=== PATIENT | male | born 1950 | race Caucasian/White ===

== ENCOUNTER 2019-12-07 16:05 | Inpatient (IN) | payer MEDICARE, OTHER ==
[~2019-12-07] VITALS: Ht 188 cm; Wt 96.3 kg
[~2019-12-07 16:05] MED LIST: ASPI81CH43; ASPI81CH43 PO; CALCTAB80; INSLISPI; INSUPOW; LEVEMIR; LISI-275; METO25TA5 OR
[2019-12-07 17:50] LABS: Basophils # (auto) 0 10 ^3/uL (0-0.2); Basophils % (auto) 0.9 % (0.0-2.0); Eosinophils # (auto) 0.2 10 ^3/uL (0-0.8); Eosinophils % (auto) 4.7 % (0.0-7.0); Hematocrit 38.7 % (41.0-53.0); Hemoglobin 13.4 g/dL (13.5-17.5); Lymphocytes # (auto) 0.8 10 ^3/uL (0.4-5.4); Lymphocytes % (auto) 15.7 % (10.0-50.0); Mean Corpuscular Hemoglobin 32.2 pg (28.0-32.0); Mean Corpuscular Hgb Conc. 34.7 g/dL (32.0-36.0); Mean Corpuscular Volume 92.9 fL (80.0-100.0); Monocytes # (auto) 0.5 10 ^3/uL (0-1.3); Monocytes % (auto) 10.7 % (0.0-12.0); Neutrophils # (auto) 3.3 10 ^3/uL (1.6-8.6); Platelet Count (auto) 193 10^3/uL (140-450); Red Blood Cells 4.16 10^6/uL (4.5-5.90); Red Cell Distribution Width 14.4 % (11.8-14.3); White Blood Cell 4.9 10^3/uL (4.4-10.8)
[2019-12-07 18:06] LABS: Albumin 2.8 g/dL (3.4-5.0); Potassium 4.5 mmol/L (3.5-5.1)
[2019-12-07 18:10] LABS: BUN/Creatinine Ratio 20.9; Bilirubin, Total 6.6 mg/dL (0.2-1.0); Total Protein 7.3 g/dL (6.4-8.2)
[2019-12-07 21:02] LABS: Urine Bacteria NONE SEEN /hpf (None Seen); Urine Blood Negative /uL (Negative); Urine Specific Gravity 1.022 (1.001-1.035); Urine WBC 1 /hpf (0 - 3)
[2019-12-07] MEDS ORDERED: ACETAMINOPHEN 325 MG TAB PO PRN (22:15)
[2019-12-07] MEDS ORDERED: ONDANSETRON HCL 4 MG/2 ML VIAL IV PRN (22:15)
[2019-12-07] MEDS ORDERED: DEXTROSE (50%) 50ML SYRG IV PRN (22:15)
[2019-12-07] MEDS ORDERED: MORPHINE SULFATE 4 MG/ML SYR/VIAL IV PRN (22:15)
[2019-12-07] MEDS ORDERED: DOCUSATE SOD 100 MG CAP PO PRN (22:15)
[2019-12-07] MEDS ORDERED: SODIUM CHLORIDE 0.9% 1,000 ML IV ONE (22:15)
[2019-12-07] MEDS ORDERED: HYDROcodone-ACET 5/325MG TAB PO PRN (22:15)
--- NOTE | 2019-12-07 23:28 | NUR ---
PATIENT ARRIVED FROM ER. PATIENT STATES THAT HE WILL BE GOING DOWNSTAIRS TO THE ER TO TALK WITH HIS SON. 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 PATIENT STATES THAT HE WILL BE BACK IN HIS ROOM IN 30 MINUTES. STEADY GAIT NOTED, NO S/SX OF DISTRESS OR SOB. PATIENT DENIES PAIN AT THIS TIME. PATIENT STATES THAT HE FEELS BETTER THAN HE HAS IN THE LAST WEEK AND A HALF. PATIENT OFF FLOOR, PATIENT STATES THAT HE WILL BE BACK IN HIS ROOM IN 30 MINUTES.
[2019-12-07 23:30] VITALS: BP_SYST 159; BP_SYST 180; BP_DIAS 74; BP_DIAS 77
--- NOTE | 2019-12-07 23:55 | NUR ---
PATIENT BACK ON FLOOR. WILL COMPLETE ASSESSMENT AND ADMISSION AT THIS TIME.
--- NOTE | 2019-12-08 | NUR ---
Telemetry admit from ER ABDIRIZAK,SHERRY TURNER admitted to Telemetry unit after SBAR received FROM ER NURSE JEFFRY TYLER. Patient oriented to Antoinette Mc, primary RN, unit, room, bed, and unit policies regarding patient care and visiting hours. Patient now on continuous telemetry monitoring, tele box #75 and telemetry reading on arrival to unit is SR 68. Patient IS ON ROOM AIR weighed by bed scale and encouraged to call if they need something. All questions and concerns addressed, patient verbalized understanding.
[2019-12-08] MEDS: ACCU-CHEK COMFORT CURVE STRIP VI SCH ×6 (00:51→20:28)
[2019-12-08] MEDS: InsuLIN REG 1unit/0.01ml Soln (100units/ml) SC SCH ×6 (00:51→20:28)
[2019-12-08] MEDS: SODIUM CHLORIDE 0.9% 1,000 ML IV SCH ×3 (01:06→18:43)
[2019-12-08] MEDS ORDERED: INSU100I45 IJ (03:05)
[2019-12-08] MEDS ORDERED: LEVEMIR SC (03:05)
[2019-12-08] MEDS ORDERED: LISI-646 PO (03:05)
--- NOTE | 2019-12-08 03:05 | NUR ---
PATIENT OWN MEDS LEVEMIR PEN NOVOLOG PEN SENT TO PHARMACY
[2019-12-08 06:00] VITALS: BP 167/86
[2019-12-08 06:24] LABS: Basophils # (auto) 0.1 10 ^3/uL (0-0.2); Basophils % (auto) 1.3 % (0.0-2.0); Eosinophils # (auto) 0.6 10 ^3/uL (0-0.8); Eosinophils % (auto) 11.2 % (0.0-7.0); Hematocrit 37.5 % (41.0-53.0); Hemoglobin 12.9 g/dL (13.5-17.5); Lymphocytes # (auto) 0.9 10 ^3/uL (0.4-5.4); Lymphocytes % (auto) 16.1 % (10.0-50.0); Mean Corpuscular Hemoglobin 31.8 pg (28.0-32.0); Mean Corpuscular Hgb Conc. 34.4 g/dL (32.0-36.0); Mean Corpuscular Volume 92.5 fL (80.0-100.0); Monocytes # (auto) 0.5 10 ^3/uL (0-1.3); Monocytes % (auto) 10.2 % (0.0-12.0); Neutrophils # (auto) 3.3 10 ^3/uL (1.6-8.6); Neutrophils % (auto) 61.2 % (37.0-80.0); Platelet Count (auto) 194 10^3/uL (140-450); Red Blood Cells 4.05 10^6/uL (4.5-5.90); Red Cell Distribution Width 14.8 % (11.8-14.3); White Blood Cell 5.4 10^3/uL (4.4-10.8)
--- NOTE | 2019-12-08 06:32 | NUR ---
BLOOD SUGAR 45 PATIENT USED HIS OWN BLOOD SUGAR MONITOR AFTER FEELING LOW BLOOD SUGAR SYMPTOMS, BS WAS 45. PATIENT HAD A CRANBERRY GRAPE JUICE AND THEN USED CALLED LIGHT. RECHECK BLOOD SUGAR WITH [facility] ACCU CHECK WAS 66. PATIENT DIET ORDER IS NPO, WILL ENDORSE TO DAY SHIFT NURSE TO MAKE ROUNDING MD AWARE. WILL CONTINUE TO MONITOR Q1H AND PRN. PATIENT COMFORTABLE IN BED. ALERT AND ORIENTED X4.
[2019-12-08 06:38] LABS: BUN/Creatinine Ratio 28.3; Calcium 8.9 mg/dL (8.5-10.1); Potassium 3.8 mmol/L (3.5-5.1)
[2019-12-08 08:30] VITALS: BP 152/73
[2019-12-08] MEDS: amLODIPine BESYLATE 5 MG TAB PO SCH (10:33)
[2019-12-08] MEDS: LISINOPRIL 20 MG TAB PO SCH (10:34)
[2019-12-08 12:00] VITALS: BP 158/68
--- NOTE | 2019-12-08 14:51 | NUR ---
CALLED AND SPOKE TO TRACE TURNER REGARDING TRANSFER TO HIGHER LEVEL OF CARE.
--- NOTE | 2019-12-08 16:23 | NUR ---
I called [facility] [phone] and spoke with Anibal-faxed in requested transfer back paperwork and clinical information-he stated this would be something that they would most likely do in their outpatient GI lab and transfer the patient back after procedure-this will more than likely happen tomorrow rather than today-I relayed this information to nurse Lewis.
--- NOTE | 2019-12-08 16:30 | NUR ---
PER TRACE TURNER TRANSFER WILL MOST LIKELY NOT HAPPEN TODAY. STATED [facility] IS SET UP AND THAT PATIENT WILL GO TO A GASTRO CLINIC.
--- NOTE | 2019-12-08 16:33 | NUR ---
I called [facility] ([phone]) and spoke with Boris, placed them on will-call pending [place] [facility] Faxed Medicare PCS form to [facility].
[2019-12-08 17:06] VITALS: BP 151/70
--- NOTE | 2019-12-08 19:20 | NUR ---
OPENING NOTE- NOC SHIFT PATIENT IS ALERT AND ORIENTED X4. PATIENT COMFORTABLE IN BED, NO S/SX OF DISTRESS, S0B OR PAIN. PATIENT IS WATCHING TELEVISION. BEDSIDE TABLE WITHIN REACH, CALL LIGHT WITHIN REACH. DISCUSSED POC WITH PATIENT AND INSTRUCTED PATIENT TO CALL PRN; PATIENT VERBALIZED UNDERSTANDING. WILL CONTINUE TO MONITOR Q1H AND PRN.
--- NOTE | 2019-12-08 20:31 | NUR ---
PATIENT OUT OF ROOM WALKING AROUND THE FLOOR. STEADY GAIT NOTED. ASKED PATIENT TO REPORT TO STATION
--- NOTE | 2019-12-08 20:44 | NUR ---
PATIENT BACK IN ROOM. NO S/SX OF DISTRESS, SOB OR PAIN.
[2019-12-08 22:00] VITALS: BP 145/81
--- NOTE | 2019-12-08 23:25 | NUR ---
PATIENT REPORTS BOWEL MOVEMENT WITH BLOOD PATIENT STATES THAT HE HAS HAD BOWELS WITH BLOOD IN THE PAST BUT THIS TIME WAS SIGNIFICANTLY MORE BLOOD. PATIENT STATES THAT THE BLOOD IS NOT MIXED WITH STOOL AND THAT HE SUSPECTS HEMORRHOIDS, DENIES DISCOMFORT OR PAIN. INSTRUCTED PATIENT TO NOT FLUSH TOILET NEXT BOWEL. BOWEL SAMPLE WAS PREVIOUSLY SENT DURING DAY SHIFT; PENDING RESULTS.
[2019-12-09] MEDS: ACCU-CHEK COMFORT CURVE STRIP VI SCH ×6 (00:41→20:19)
--- NOTE | 2019-12-09 01:10 | NUR ---
IMAGE CD ORDERED FROM RADIOLOGY FOR TRANSFER.
[2019-12-09] MEDS: SODIUM CHLORIDE 0.9% 1,000 ML IV SCH ×2 (04:41→14:22)
[2019-12-09] MEDS: InsuLIN REG 1unit/0.01ml Soln (100units/ml) SC SCH ×6 (04:41→20:19)
--- NOTE | 2019-12-09 04:57 | NUR ---
[place] [facility] [place] [facility] [place] [phone] CALLED TO FOLLOW UP ON PATIENT STATUS FOR TRANSFER. BED NOT AVAILABLE AT THIS TIME. KATIUSKA ASKED IF PATIENT HAS FEVER, ISOLATION AND IF PATIENT REQUIRES SITTER. KATIUSKA WAS UPDATED WITH PATIENT STATUS.
[2019-12-09 05:00] VITALS: BP 156/85
[2019-12-09 06:44] LABS: Hematocrit 33.9 % (41.0-53.0); Hemoglobin 11.8 g/dL (13.5-17.5); Mean Corpuscular Hemoglobin 31.8 pg (28.0-32.0); Mean Corpuscular Hgb Conc. 34.7 g/dL (32.0-36.0); Mean Corpuscular Volume 91.7 fL (80.0-100.0); Platelet Count (auto) 179 10^3/uL (140-450); Red Blood Cells 3.69 10^6/uL (4.5-5.90); Red Cell Distribution Width 14.9 % (11.8-14.3); White Blood Cell 4.8 10^3/uL (4.4-10.8)
[2019-12-09 06:48] LABS: INR 1.17 (0.9-1.15)
[2019-12-09 06:53] LABS: Albumin 2.5 g/dL (3.4-5.0); Calcium 8.3 mg/dL (8.5-10.1); Potassium 3.7 mmol/L (3.5-5.1)
[2019-12-09 06:54] LABS: Band Neutrophils % (manual) 0; Basophils % (manual) 0 (0.0-2.0); Blast Cells 0; Metamyelocytes % 0; Myelocytes % 0; Promyelocytes % 0; Reactive Lymphocytes 0
[2019-12-09 06:57] LABS: Bilirubin, Total 7.3 mg/dL (0.2-1.0); Total Protein 6.2 g/dL (6.4-8.2)
--- NOTE | 2019-12-09 07:30 | NUR ---
RECEIVED REPORT FROM NIGHT NURSE. PATIENT RESTING IN BED, NO DISTRESS NOTED. WILL CONTINUE TO MONITOR.
[2019-12-09 07:44] LABS: Eosinophils % (manual) 10 (0-7); Lymphocytes % (manual) 20 (10.0-50.0); Monocytes % (manual) 7 (0-12)
[2019-12-09 09:00] VITALS: BP 159/86
[2019-12-09] MEDS: LISINOPRIL 20 MG TAB PO SCH (10:37)
[2019-12-09] MEDS: amLODIPine BESYLATE 5 MG TAB PO SCH (10:37)
[2019-12-09] MEDS: Glucerna Carbsteady SHAKE Vanilla 8oz PO SCH ×2 (12:24→18:22)
--- NOTE | 2019-12-09 12:48 | NUR ---
I received a call from Serjio at the [facility] letting me know that they have accepted this patient to their GI lab-they will take patient this evening and will send him back to us tomorrow after procedure is completed. I spoke with warehouse specialist Stacie, she is aware and will make sure the patient's bed is saved for him to come back to tomorrow.
[2019-12-09 13:00] VITALS: BP 165/89
--- NOTE | 2019-12-09 14:18 | NUR ---
PAGED DOCTOR LOERA FOR PRN ORDERS.
--- NOTE | 2019-12-09 14:21 | NUR ---
SPOKE TO DOCTOR LOERA, ORDERS RECEIVED, WILL PLACE AND CARRY OUT.
[2019-12-09] MEDS ORDERED: cloNIDine HCL 0.1 MG TAB PO PRN (14:30)
--- NOTE | 2019-12-09 16:50 | NUR ---
I spoke with Serjio at the [facility] [phone] and made him aware that per administration we are not willing to sign/pay for the outpatient EUS at their GI lab. Per Serjio they will bring the patient over anyway-he has already arranged transportation back tomorrow. Patient will be going to their [place] GI lab, they do not want patient to arrive prior to 8pm. Nurse can call report to [phone] (but not before 730pm). I called MICHEAL to set up transportation-per Victoria Medicare will not cover trip due to it being an outpatient procedure. I called patient's secondary insurance-[employer] and spoke with Aarti, she said they can not authorize either due to patient going for an outpatient procedure. Per Victoria, she will fax voucher over for us to sign for transportation to [facility]. [facility] ETA is 1999. Account Support Specialist Stacie aware that they need to hold patient's bed as he will be transferred back to us tomorrow. I relayed this information to nurse Deutsch.
[2019-12-09 17:00] VITALS: BP 147/75
--- NOTE | 2019-12-09 19:00 | NUR ---
OPENING NOTE- NOC SHIFT PATIENT IS ALERT AND ORIENTED X4, ANSWERS IN COMPLETE SENTENCES AND MAKES APPROPRIATE EYE CONTACT. NO S/SX OF DISTRESS OR SOB. PATIENT DENIES PAIN AT THIS TIME. PATIENT IS COMFORTABLE IN BED. BED IS LOCKED AT LOWEST POSITION, BED RAILS UP X2 AND HEAD OF BED IS UP >30 DEGREES. PATIENT IS AWARE OF PENDING TRANSFER TO [facility]. WILL CONTINUE TO MONITOR Q1H AND PRN. WILL FOLLOW UP WITH TRANSFER.
--- NOTE | 2019-12-09 19:15 | NUR ---
[facility] TRANSF[facility] CALL SPOKE WITH KAYLYN PATIÑO PROVIDED PATIENT DESTINATION [address] [place] [address] [address] SULLIVAN, BUILDING [address] [place] [address] RECEIVING MD KAREL IRWIN MD PHONE NUMBER FOR REPORT [phone] JEZ
--- NOTE | 2019-12-09 19:41 | NUR ---
REPORT GIVEN TO ARMIDA TYLER AT [facility] [phone]
--- NOTE | 2019-12-09 19:45 | NUR ---
[facility] REP STATES ETA IS [id number]
--- NOTE | 2019-12-09 20:50 | NUR ---
Discharge Transfers Patient is being transferred to [facility]. Patient is to follow up with accepting KAREL IRWIN MD doctor at the receiving facility. ALL PERSONAL BELONGINGS WITH PATIENT. NO S/SX OF DISTRESS OR SOB. PATIENT DENIES PAIN. TRANSFERRED VIA [facility]. TELE BOX 75 SENT TO MONITOR TECHS. ALL DISCHARGE AND TRANSFER PAPERWORK WITH PATIENT.
--- NOTE | 2019-12-09 21:09 | NUR ---
SPOKE WITH MARCELLA PATIENT'S AND MADE HER AWARE OF PATIENT TRANSFER PROVIDED MARCELLA WITH KATELYNN ORELLANA RN NAME, PHONE NUMBER AND DESTINATION ADDRESS.
== END 2019-12-09 20:50 | disposition short-term general hospital (02) | DRG 438 ==
LOC: ER 16:05 → TELE-WESTW 16:06 → MERGE 16:06
PROVIDERS: ADMIT Hospitalist; ATTEND Internal Medicine
DX: K86.9 Disease of pancreas, unspecified (principal); K83.1 Obstruction of bile duct; N17.0 Acute kidney failure with tubular necrosis; E44.0 Moderate protein-calorie malnutrition; E87.1 Hypo-osmolality and hyponatremia; R65.10 Systemic inflammatory response syndrome (SIRS) of non-infectious origin without acute organ dysfunction; R79.89 Other specified abnormal findings of blood chemistry; K56.41 Fecal impaction; E11.65 Type 2 diabetes mellitus with hyperglycemia; E11.21 Type 2 diabetes mellitus with diabetic nephropathy; Z85.46 Personal history of malignant neoplasm of prostate; I10 Essential (primary) hypertension; C61 Malignant neoplasm of prostate; Z90.410 Acquired total absence of pancreas; Z68.27 Body mass index [BMI] 27.0-27.9, adult
CPT/HCPCS: 36415; 71046; 71250; 74176; 74183; 80048; 80053; 81001; 82105; 82140; 82150; 82248; 82378; 82705; 82962; 83036; 83690; 84154; 84443; 85007; 85025; 85027; 85610; 86301; 87045; 87081; 87427; 87804; 93005; G0378; J1815

== ENCOUNTER 2019-12-11 12:16 | Inpatient (IN) | payer MEDICARE, OTHER ==
[~2019-12-11 12:16] MED LIST changes: +INSU100I45 IJ; +LEVEMIR SC; +LISI-646 PO
--- NOTE | 2019-12-11 15:41 | NUR ---
RECEIVED REPORT FROM JAYSON BHATT AT [facility].
--- NOTE | 2019-12-11 16:45 | NUR ---
RECEIVED FOLLOW-UP CALL FROM [facility]. PATIENT SCHEDULED TO BE TRANSPORTED BETWEEN [phone].
--- NOTE | 2019-12-11 20:35 | NUR ---
arrival note pt arrived to rm 207. pt A&Ox4. pt denies any pain or discomfort at this time. respirations are even and non labored on room air. pt ambulates without assistance, and tolerates well.
[2019-12-11 20:48] VITALS: BP 176/79
[2019-12-11] MEDS ORDERED: ONDANSETRON HCL 4 MG/2 ML VIAL IV PRN (21:45)
[2019-12-11] MEDS ORDERED: HYDROcodone-ACET 5/325MG TAB PO PRN (21:45)
[2019-12-11] MEDS ORDERED: ACETAMINOPHEN 325 MG TAB PO PRN (21:45)
[2019-12-11] MEDS ORDERED: TEMAZEPAM 15 MG CAP PO PRN (21:45)
[2019-12-11] MEDS ORDERED: DEXTROSE (50%) 50ML SYRG IV PRN (21:45)
[2019-12-11 22:00] VITALS: BP 176/79
[2019-12-11] MEDS: ACCU-CHEK COMFORT CURVE STRIP VI SCH (22:34)
--- NOTE | 2019-12-11 22:40 | NUR ---
critical high blood glucose of 408, hospitalist paged.
--- NOTE | 2019-12-11 22:42 | NUR ---
gave pt 10 units insulin r
[2019-12-11 22:44] LABS: White Blood Cell 4.8 10^3/uL (4.4-10.8)
[2019-12-11 22:46] LABS: Hematocrit 33.7 % (41.0-53.0); Hemoglobin 11.7 g/dL (13.5-17.5); Mean Corpuscular Hemoglobin 33.1 pg (28.0-32.0); Mean Corpuscular Hgb Conc. 34.6 g/dL (32.0-36.0); Mean Corpuscular Volume 95.7 fL (80.0-100.0); Platelet Count (auto) 195 10^3/uL (140-450); Red Blood Cells 3.52 10^6/uL (4.5-5.90); Red Cell Distribution Width 15.2 % (11.8-14.3)
[2019-12-11] MEDS: InsuLIN REG 1unit/0.01ml Soln (100units/ml) SC SCH (22:47)
[2019-12-11 22:48] LABS: INR 1.21 (0.9-1.15); Partial Thromboplastin Time 28.2 sec (23.64-32.05)
--- NOTE | 2019-12-11 22:50 | NUR ---
spoke hospitalist Tito regarding critical high blood sugar. no new orders received .
[2019-12-11 22:51] LABS: Albumin 2.8 g/dL (3.4-5.0); BUN/Creatinine Ratio 20.2; Band Neutrophils % (manual) 0; Basophils % (manual) 0 (0.0-2.0); Blast Cells 0; Calcium 8.4 mg/dL (8.5-10.1); Metamyelocytes % 0; Myelocytes % 0; Potassium 4.1 mmol/L (3.5-5.1); Promyelocytes % 0; Reactive Lymphocytes 0
[2019-12-11 22:52] LABS: Amylase 10 U/L (25-115); Lipase 13 U/L (73-393)
[2019-12-11 22:54] LABS: Bilirubin, Total 3.6 mg/dL (0.2-1.0); Total Protein 6.9 g/dL (6.4-8.2)
--- NOTE | 2019-12-11 22:55 | NUR ---
pt left to smoke, AMA in chart
--- NOTE | 2019-12-11 23:10 | NUR ---
pt returned to rm 207
[2019-12-11 23:24] LABS: Eosinophils % (manual) 1 (0-7); Lymphocytes % (manual) 8 (10.0-50.0); Monocytes % (manual) 2 (0-12)
--- NOTE | 2019-12-12 04:40 | NUR ---
UA specimen sent to LAB
[2019-12-12 05:00] VITALS: BP 152/66
[2019-12-12 05:01] LABS: Urine Bacteria NONE SEEN /hpf (None Seen); Urine Blood Negative /uL (Negative); Urine Specific Gravity 1.006 (1.001-1.035); Urine WBC 1 /hpf (0 - 3)
[2019-12-12] MEDS: ACCU-CHEK COMFORT CURVE STRIP VI SCH ×2 (06:10→13:07)
[2019-12-12] MEDS: InsuLIN REG 1unit/0.01ml Soln (100units/ml) SC SCH ×2 (06:14→13:08)
--- NOTE | 2019-12-12 06:59 | NUR ---
closing note pt resting in semi fowlers position with HOB 30 degrees. pt watching tv, and denies any pain or discomfort. resp are even and non labored on room air. bed is in low locked position, with call light within reach.
--- NOTE | 2019-12-12 07:30 | NUR ---
Opening Shift Note RECEIVED REPORT FROM NOC RN. Assumed care of patient, awake and alert. No S/S of distress/SOB or pain. BED IN LOWEST, LOCKED POSITION WITH SIDERAILS UP x2 AND CALL LIGHT WITHIN REACH. Instructed on POC and to call for assist PRN, will continue to monitor for changes Q1hr and PRN.
[2019-12-12 09:00] VITALS: BP 147/67
[2019-12-12] MEDS ORDERED: LISINOPRIL 20 MG TAB PO SCH (10:00)
[2019-12-12 13:22] VITALS: BP 168/77
[2019-12-12 13:23] VITALS: BP 168/77
== END 2019-12-12 13:55 | disposition home or self-care (01) | DRG 438 ==
LOC: TELE-CENTR 20:48 → MERGE 20:48
PROVIDERS: ADMIT Internal Medicine; ATTEND Internal Medicine
DX: K86.9 Disease of pancreas, unspecified (principal); K83.1 Obstruction of bile duct; E44.0 Moderate protein-calorie malnutrition; R65.10 Systemic inflammatory response syndrome (SIRS) of non-infectious origin without acute organ dysfunction; E87.0 Hyperosmolality and hypernatremia; R17 Unspecified jaundice; E11.21 Type 2 diabetes mellitus with diabetic nephropathy; I10 Essential (primary) hypertension; Z85.46 Personal history of malignant neoplasm of prostate; Z80.42 Family history of malignant neoplasm of prostate; Z68.25 Body mass index [BMI] 25.0-25.9, adult; Z72.0 Tobacco use; Z80.3 Family history of malignant neoplasm of breast; Z82.49 Family history of ischemic heart disease and other diseases of the circulatory system
CPT/HCPCS: 36415; 80053; 81001; 82150; 82962; 83690; 85007; 85027; 85610; 85730; G0378; J1815

== ENCOUNTER → 2020-01-21 | Emergency (ER) | payer MEDICARE, OTHER ==
[~2020-01-21] VITALS: Ht 190.5 cm; Wt 106.6 kg
[~2020-01-21] MED LIST changes: +ACETAMINOPHEN 500 MG TAB PO ONE; +HYDROcodone-ACET 5/325MG TAB PO ONE; +HYDROmorphone HCL 2 MG/ML VL IV ONE; +MORPHINE SULFATE 4 MG/ML SYR/VIAL IV ONE; +ONDANSETRON HCL 4 MG/2 ML VIAL IV ONE; +ONDANSETRON HCL 4 MG/2 ML VIAL ONE; +SODIUM CHLORIDE 0.9% 1,000 ML IV ONE; +cefTRIAXone 1GM/50ML D5W 50 ML IV ONE; +cloNIDine HCL 0.1 MG TAB PO ONE; +metroNIDAZOLE 500MG/100ML 100 ML IV ONE
[2020-01-21 01:24] LABS: Hematocrit 38.6 % (41.0-53.0); Hemoglobin 12.8 g/dL (13.5-17.5); Mean Corpuscular Hemoglobin 31.1 pg (28.0-32.0); Mean Corpuscular Hgb Conc. 33.2 g/dL (32.0-36.0); Mean Corpuscular Volume 93.6 fL (80.0-100.0); Platelet Count (auto) 214 10^3/uL (140-450); Red Blood Cells 4.12 10^6/uL (4.5-5.90); Red Cell Distribution Width 14.3 % (11.8-14.3); White Blood Cell 6.5 10^3/uL (4.4-10.8)
[2020-01-21 01:43] LABS: Albumin 2.8 g/dL (3.4-5.0); BUN/Creatinine Ratio 11.7; Calcium 8.3 mg/dL (8.5-10.1); Potassium 3.7 mmol/L (3.5-5.1)
[2020-01-21 01:46] LABS: Basophils % (manual) 0 (0.0-2.0); Blast Cells 0; Eosinophils % (manual) 0 (0-7); Metamyelocytes % 0; Myelocytes % 0; Promyelocytes % 0; Reactive Lymphocytes 0
[2020-01-21 01:50] LABS: Bilirubin, Total 2.1 mg/dL (0.2-1.0)
[2020-01-21 01:52] LABS: Lactic Acid w/Reflex 3.3 mmol/L (0.4-2.0)
[2020-01-21 02:44] LABS: Band Neutrophils % (manual) 14; Lymphocytes % (manual) 2 (10.0-50.0); Monocytes % (manual) 5 (0-12)
[2020-01-21 03:47] LABS: Urine Bacteria NONE SEEN /hpf (None Seen); Urine Blood Negative /uL (Negative); Urine Specific Gravity 1.009 (1.001-1.035); Urine WBC <1 /hpf (0 - 3)
[2020-01-21 06:00] VITALS: BP 139/61
== END | disposition home or self-care (01) ==
LOC: EDUNIT# 00:31 → EDBD 00:41 → ER 00:48
DX: R53.1 Weakness (principal)
CPT/HCPCS: 36415; 74176; 80053; 81001; 82140; 82150; 83605; 83690; 84484; 85007; 85027; 87040; 87070; 87077; 87186; 87804; 87880; 93005; 96365; 96368; 96375; 99285; J0696; J1170; J2405; J3490; J7030

== ENCOUNTER 2020-03-18 15:01 | Inpatient (IN) | payer MEDICARE, OTHER ==
[~2020-03-18] VITALS: Ht 188 cm; Wt 99.3 kg
[~2020-03-18 15:01] MED LIST changes: -ACETAMINOPHEN 500 MG TAB PO ONE; -HYDROcodone-ACET 5/325MG TAB PO ONE; -HYDROmorphone HCL 2 MG/ML VL IV ONE; -MORPHINE SULFATE 4 MG/ML SYR/VIAL IV ONE; -ONDANSETRON HCL 4 MG/2 ML VIAL IV ONE; -ONDANSETRON HCL 4 MG/2 ML VIAL ONE; -SODIUM CHLORIDE 0.9% 1,000 ML IV ONE; -cefTRIAXone 1GM/50ML D5W 50 ML IV ONE; -cloNIDine HCL 0.1 MG TAB PO ONE; -metroNIDAZOLE 500MG/100ML 100 ML IV ONE
[2020-03-18 16:26] LABS: Hemoglobin 12.2 g/dL (13.5-17.5); Mean Corpuscular Hemoglobin 31.1 pg (28.0-32.0); Mean Corpuscular Hgb Conc. 33.1 g/dL (32.0-36.0); Mean Corpuscular Volume 94.1 fL (80.0-100.0); Platelet Count (auto) 83 10^3/uL (140-450); Red Blood Cells 3.94 10^6/uL (4.5-5.90); Red Cell Distribution Width 15.6 % (11.8-14.3); White Blood Cell 2.6 10^3/uL (4.4-10.8)
[2020-03-18 16:31] LABS: Basophils % (manual) 0 (0.0-2.0); Blast Cells 0; Eosinophils % (manual) 0 (0-7); Myelocytes % 0; Promyelocytes % 0; Reactive Lymphocytes 0
[2020-03-18 16:39] LABS: Albumin 2.5 g/dL (3.4-5.0); Calcium 7.8 mg/dL (8.5-10.1); Potassium 4.1 mmol/L (3.5-5.1)
[2020-03-18 16:42] LABS: BUN/Creatinine Ratio 13.8
[2020-03-18 16:47] LABS: Bilirubin, Total 0.6 mg/dL (0.2-1.0); Total Protein 6.8 g/dL (6.4-8.2)
[2020-03-18 17:07] LABS: Band Neutrophils % (manual) 6; Lymphocytes % (manual) 9 (10.0-50.0); Metamyelocytes % 2; Monocytes % (manual) 6 (0-12)
[2020-03-18] MEDS ORDERED: PANTOPRAZOLE 40 MG/10 ML VIAL INJ IV STA (18:25)
[2020-03-18] MEDS ORDERED: SODIUM CHLORIDE 0.9% 500 ML IVB ONE (18:25)
[2020-03-18] MEDS ORDERED: ONDANSETRON HCL 4 MG/2 ML VIAL IV ONE (18:30)
[2020-03-18] MEDS ORDERED: MORPHINE SULFATE 4 MG/ML SYR/VIAL IV ONE (18:30)
[2020-03-18] MEDS ORDERED: MORPHINE SULF INJ 2 MG/ML SYRINGE 1ML IV PRN ×2 (19:15→21:15)
[2020-03-18] MEDS ORDERED: NITROGLYCERIN 0.4 MG SL TAB SL PRN ×3 (19:15→21:15)
[2020-03-18] MEDS ORDERED: INSULIN LANTUS (GLARGINE) 1 /0.01ml (100units/ml) SC ONE (19:15)
[2020-03-18] MEDS ORDERED: LACTATED RINGER'S 2,000 ML IV STA (19:47)
[2020-03-18] MEDS ORDERED: D5W/SOD CHLO 0.9% 1,000 ML IV SCH (21:12)
[2020-03-18] MEDS: ATORVASTATIN 20 MG TAB PO ONE ×2 (21:15→23:04)
[2020-03-18] MEDS ORDERED: ALUM & MAG HYDROX-SIMETH LIQ(MAALOX) 30 ML PO PRN (21:15)
[2020-03-18] MEDS ORDERED: MORPHINE SULFATE 4 MG/ML SYR/VIAL IV PRN (21:15)
[2020-03-18] MEDS ORDERED: HYDROcodone-ACET 5/325MG TAB PO PRN (21:15)
[2020-03-18] MEDS ORDERED: ONDANSETRON HCL 4 MG/2 ML VIAL IV PRN (21:15)
[2020-03-18] MEDS ORDERED: LORazepam 0.5 MG TAB PO PRN (21:15)
[2020-03-18] MEDS ORDERED: DOCUSATE SOD 100 MG CAP PO PRN (21:15)
[2020-03-18] MEDS ORDERED: ENOXAPARIN SOD 80 MG/0.8ML SYRINGE SC ONE ×3 (21:30→22:45)
[2020-03-18] MEDS ORDERED: MEROPENEM 500MG IVPB 50 ML IV ONE (21:30)
[2020-03-18] MEDS ORDERED: DEXTROSE (50%) 50ML SYRG IV PRN (21:45)
[2020-03-18] MEDS ORDERED: FAMOTIDINE (10MG/ML) 2ML VL IV ONE (21:45)
[2020-03-18] MEDS: CARVEDILOL 3.125 MG TAB PO SCH (22:00)
[2020-03-18] MEDS ORDERED: ENOXAPARIN SOD 80 MG/0.8ML SYRINGE SC SCH (22:00)
[2020-03-18 22:29] LABS: Urine Bacteria FEW /hpf (None Seen); Urine Blood TRACE /uL (Negative); Urine Hyaline Cast FEW /lpf (0 - 2); Urine Specific Gravity 1.013 (1.001-1.035); Urine WBC 1 /hpf (0 - 3)
--- NOTE | 2020-03-18 22:30 | NUR ---
Telemetry admit from ER LUÍS REVELES admitted to Telemetry unit after SBAR received. Patient oriented to MUSHTAQ JOHNSON, primary RN, unit, room, bed, and unit policies regarding patient care and visiting hours. Patient now on continuous telemetry monitoring, tele box #5 and telemetry reading on arrival to unit is SR in 80s. Patient is semi fowlers, bed in lowest locked position, side rails up x2, weighed by bedscale and encouraged to call if they need something. All questions and concerns addressed, patient verbalized understanding.
[2020-03-18] MEDS ORDERED: PROC10TA2 PO (22:42)
[2020-03-18] MEDS ORDERED: OXY5T PO (22:42)
[2020-03-18] MEDS ORDERED: INSU1INJ21 SC (22:42)
[2020-03-18] MEDS ORDERED: ONDA-143 PO (22:42)
[2020-03-18 22:44] LABS: Amphetamine Screen, Urine NEGATIVE (NEGATIVE); Barbiturate Scree,Urine NEGATIVE (NEGATIVE); Benzodiazephine Screen, Urine NEGATIVE (NEGATIVE); Cocaine Screen, Urine NEGATIVE (NEGATIVE); Opiate Scree,Urine POSITIVE (NEGATIVE); Phencyclidine Screen, Urine NEGATIVE (NEGATIVE)
[2020-03-18 22:56] LABS: Cannabinoid Screen, Urine NEGATIVE (NEGATIVE)
[2020-03-18 22:59] LABS: Alcohol, Urine < 3.0 mg/dL (0-10)
[2020-03-18] MEDS: ASPirin 81 mg TAB PO SCH (23:04)
[2020-03-18] MEDS: MEROPENEM 1GM IVPB 100 ML IV SCH (23:05)
[2020-03-18] MEDS: D5W/SOD CHLO 0.9% 1,000 ML IV SCH (23:08)
[2020-03-18] MEDS: ACCU-CHEK COMFORT CURVE STRIP VI SCH (23:49)
[2020-03-18] MEDS: InsuLIN REG 1unit/0.01ml Soln (100units/ml) SC SCH (23:49)
[2020-03-19] MEDS: MORPHINE SULF INJ 2 MG/ML SYRINGE 1ML IV PRN ×2 (00:55→22:52)
[2020-03-19 05:11] VITALS: BP 125/60
[2020-03-19] MEDS: D5W/SOD CHLO 0.9% 1,000 ML IV SCH ×4 (05:16→23:16)
[2020-03-19] MEDS: InsuLIN REG 1unit/0.01ml Soln (100units/ml) SC SCH ×4 (06:00→23:13)
[2020-03-19 06:04] LABS: Basophils # (auto) 0 10 ^3/uL (0-0.2); Basophils % (auto) 0.2 % (0.0-2.0); Eosinophils # (auto) 0 10 ^3/uL (0-0.8); Hemoglobin 9.6 g/dL (13.5-17.5); Lymphocytes # (auto) 0.1 10 ^3/uL (0.4-5.4); Mean Corpuscular Volume 90.7 fL (80.0-100.0); Monocytes # (auto) 0 10 ^3/uL (0-1.3)
[2020-03-19 06:07] LABS: Eosinophils % (auto) 0.6 % (0.0-7.0); Hematocrit 27.4 % (41.0-53.0); Lymphocytes % (auto) 5.4 % (10.0-50.0); Mean Corpuscular Hemoglobin 31.8 pg (28.0-32.0); Monocytes % (auto) 3.9 % (0.0-12.0); Neutrophils % (auto) 89.9 % (37.0-80.0); Platelet Count (auto) 38 10^3/uL (140-450); Red Blood Cells 3.02 10^6/uL (4.5-5.90); Red Cell Distribution Width 15.4 % (11.8-14.3)
[2020-03-19] MEDS: ACCU-CHEK COMFORT CURVE STRIP VI SCH ×4 (06:10→23:07)
[2020-03-19 06:19] LABS: INR 1.36 (0.9-1.15); Partial Thromboplastin Time 39.6 sec (23.64-32.05)
[2020-03-19 06:22] LABS: Potassium 3.7 mmol/L (3.5-5.1)
[2020-03-19 06:28] LABS: Amylase 10 U/L (25-115); Lipase < 10 U/L (73-393)
[2020-03-19 06:40] LABS: BUN/Creatinine Ratio 22.3; Calcium 7.5 mg/dL (8.5-10.1); Magnesium 1.6 mg/dL (1.6-2.6); Phosphorus 2.3 mg/dL (2.5-4.90); Total Protein 5.4 g/dL (6.4-8.2)
[2020-03-19 06:45] LABS: Bilirubin, Total 0.5 mg/dL (0.2-1.0)
--- NOTE | 2020-03-19 07:25 | NUR ---
Opening Shift Note Assumed care of patient. Patient sleeping. No S/S of distress/SOB or pain noted. Bed in lowest position, side rails up x2. Will continue to monitor for changes Q1hr and PRN.
[2020-03-19 07:31] LABS: White Blood Cell 1.1 10^3/uL (4.4-10.8)
--- NOTE | 2020-03-19 07:32 | NUR ---
CRITICAL LAB ACCEPTED FOR WBC SUSTAINABLE LANDSCAPE ARCHITECT DOCTOR PAGED.
[2020-03-19 08:00] VITALS: BP 111/55
[2020-03-19 09:00] VITALS: BP 111/55
[2020-03-19] MEDS: MEROPENEM 1GM IVPB 100 ML IV SCH ×2 (09:46→18:15)
[2020-03-19] MEDS: FAMOTIDINE (10MG/ML) 2ML VL IV SCH ×2 (09:47→22:08)
[2020-03-19] MEDS: CLOPIDOGREL BISULFATE 75 MG TAB PO SCH (09:47)
[2020-03-19] MEDS: ASPirin 81 mg TAB PO SCH (09:47)
[2020-03-19] MEDS: LISINOPRIL 5 MG TAB PO SCH (09:52)
[2020-03-19] MEDS: CARVEDILOL 3.125 MG TAB PO SCH ×3 (09:52→22:09)
--- NOTE | 2020-03-19 10:49 | NUR ---
PT off unit Patient taken to procedure via wheelchair. No SOB or s/s distress noted.
--- NOTE | 2020-03-19 11:18 | NUR ---
PATIENT REPORTS FIRST BOWEL MOVEMENT WITH LINDA BRIGHT RED BLOOD. WILL NOTIFY HOSPITALIST.
[2020-03-19 13:00] VITALS: BP 117/59
[2020-03-19] MEDS ORDERED: ASPI-498 PO (14:09)
[2020-03-19] MEDS ORDERED: INSU1INJ5 SC (14:13)
[2020-03-19] MEDS ORDERED: INSU100I51 SC (14:14)
[2020-03-19] MEDS ORDERED: MAGNESIUM SULFATE 1GM/100ML 100 ML IV ONE (15:00)
[2020-03-19 17:00] VITALS: BP 123/62
--- NOTE | 2020-03-19 19:33 | NUR ---
Opening Shift Note Assumed care of patient, awake and alert. No S/S of distress/SOB or pain. Instructed on POC and to call for assistance PRN, will continue to monitor for changes. Patient in semi fowlers position, bed in lowest locked position, bed rails up x2, call light within reach. All questions and concerns answered, patient verbalized understanding.
[2020-03-19 21:48] VITALS: BP 149/71
[2020-03-19] MEDS: ATORVASTATIN 20 MG TAB PO SCH ×2 (22:00→22:09)
--- NOTE | 2020-03-19 22:31 | NUR ---
Patient refused Patient refused medications Lipitor and Coreg. Educated patient on purpose of medications and risks of refusing. Patient verbalized understanding. Patient states he would rather have a BP of 147/71 than risk bottoming out like he did a couple of days ago and that Lipitor is useless.
--- NOTE | 2020-03-19 23:28 | NUR ---
Spoke with Violette from the blood bank. She stated that the platelets still have not arrived and that she will call when they are here and ready.
[2020-03-20] VITALS (13 sets, daily range): BP systolic 117–162; BP diastolic 66–98
[2020-03-20] MEDS: MEROPENEM 1GM IVPB 100 ML IV SCH ×3 (01:37→18:47)
[2020-03-20] MEDS: MORPHINE SULF INJ 2 MG/ML SYRINGE 1ML IV PRN ×3 (05:20→20:16)
[2020-03-20] MEDS: ACCU-CHEK COMFORT CURVE STRIP VI SCH ×3 (05:21→18:47)
[2020-03-20] MEDS: InsuLIN REG 1unit/0.01ml Soln (100units/ml) SC SCH ×3 (05:27→18:48)
--- NOTE | 2020-03-20 05:48 | NUR ---
Critical Lab Hospitalist made aware of positive blood culture. (Gram negative rods) No new orders received.
[2020-03-20 05:57] LABS: Basophils # (auto) 0 10 ^3/uL (0-0.2); Eosinophils # (auto) 0.1 10 ^3/uL (0-0.8); Hemoglobin 8.8 g/dL (13.5-17.5); Lymphocytes # (auto) 0.2 10 ^3/uL (0.4-5.4); Mean Corpuscular Volume 90.9 fL (80.0-100.0); Monocytes # (auto) 0.1 10 ^3/uL (0-1.3); Nucleated Red Blood Cells % 0.1 %; Red Cell Distribution Width 15.6 % (11.8-14.3)
[2020-03-20 06:02] LABS: Basophils % (auto) 1.3 % (0.0-2.0); Eosinophils % (auto) 7.2 % (0.0-7.0); Hematocrit 25.6 % (41.0-53.0); Lymphocytes % (auto) 13.7 % (10.0-50.0); Mean Corpuscular Hemoglobin 31.3 pg (28.0-32.0); Mean Corpuscular Hgb Conc. 34.4 g/dL (32.0-36.0); Monocytes % (auto) 5.1 % (0.0-12.0); Neutrophils % (auto) 72.7 % (37.0-80.0); Platelet Count (auto) 39 10^3/uL (140-450); Red Blood Cells 2.82 10^6/uL (4.5-5.90)
[2020-03-20 06:05] LABS: White Blood Cell 1.3 10^3/uL (4.4-10.8)
[2020-03-20 06:07] LABS: Potassium 3.7 mmol/L (3.5-5.1)
[2020-03-20 06:13] LABS: Albumin 1.8 g/dL (3.4-5.0); BUN/Creatinine Ratio 19.1; Calcium 7.3 mg/dL (8.5-10.1); Total Protein 5.3 g/dL (6.4-8.2)
[2020-03-20 06:15] LABS: Bilirubin, Total 0.3 mg/dL (0.2-1.0)
--- NOTE | 2020-03-20 06:20 | NUR ---
Blood 1 unit of platelets transfused, educated patient on signs/symptoms of transfusion reaction, patient verbalized understanding. Patient tolerated well, no signs or symptoms of transfusion reaction. Will continue to monitor.
[2020-03-20] MEDS: D5W/SOD CHLO 0.9% 1,000 ML IV SCH ×3 (06:22→20:10)
--- NOTE | 2020-03-20 07:00 | NUR ---
Opening Shift Note Assumed care of patient, awake and alert. No S/S of distress/SOB or pain. Instructed on POC and to call for assist PRN, will continue to monitor for changes Q1hr and PRN.
[2020-03-20] MEDS: FAMOTIDINE (10MG/ML) 2ML VL IV SCH ×2 (09:24→22:26)
[2020-03-20] MEDS: CARVEDILOL 3.125 MG TAB PO SCH ×2 (09:25→22:26)
[2020-03-20] MEDS: CLOPIDOGREL BISULFATE 75 MG TAB PO SCH (09:25)
[2020-03-20] MEDS: ASPirin 81 mg TAB PO SCH (09:25)
[2020-03-20] MEDS: LISINOPRIL 5 MG TAB PO SCH (09:26)
[2020-03-20] MEDS: FILGRASTIM(TBO) 480 MCG/0.8 ML SYRG SC SCH (09:45)
[2020-03-20 11:47] LABS: Red Blood Cells 2.74 10^6/uL (4.5-5.90)
[2020-03-20 11:49] LABS: Hematocrit 24.9 % (41.0-53.0); Hemoglobin 8.5 g/dL (13.5-17.5); Mean Corpuscular Hemoglobin 31.2 pg (28.0-32.0); Mean Corpuscular Hgb Conc. 34.3 g/dL (32.0-36.0); Mean Corpuscular Volume 90.9 fL (80.0-100.0); Platelet Count (auto) 36 10^3/uL (140-450); Red Cell Distribution Width 15.5 % (11.8-14.3)
[2020-03-20 11:54] LABS: White Blood Cell 1.3 10^3/uL (4.4-10.8)
[2020-03-20 11:55] LABS: Blast Cells 0; Promyelocytes % 0; Reactive Lymphocytes 0
--- NOTE | 2020-03-20 12:54 | NUR ---
obtained order from Dr. Bartholomew to transfuse 1 unit of platelets.
[2020-03-20 13:42] LABS: Band Neutrophils % (manual) 1; Basophils % (manual) 1 (0.0-2.0); Eosinophils % (manual) 4 (0-7); Lymphocytes % (manual) 14 (10.0-50.0); Metamyelocytes % 1; Monocytes % (manual) 5 (0-12); Myelocytes % 3
--- NOTE | 2020-03-20 14:00 | NUR ---
lab informed me that the platelets have to be ordered from [place] the [place] and will be a few hours until it gets here.
--- NOTE | 2020-03-20 15:07 | NUR ---
obtained orders for as needed blood pressure management.
[2020-03-20] MEDS ORDERED: cloNIDine HCL 0.1 MG TAB PO PRN (15:15)
--- NOTE | 2020-03-20 20:17 | NUR ---
Patient complains of pain 10/10 Patient given medication as prescribed. Will continue to monitor.
--- NOTE | 2020-03-20 21:19 | NUR ---
Platelets given as ordered. Will continue to monitor patient.
[2020-03-20] MEDS: ATORVASTATIN 20 MG TAB PO SCH (22:00)
--- NOTE | 2020-03-20 22:00 | NUR ---
Hospitalist Pagegeoff Received order to D/C morphine due to adverse reaction to morphine PRN. Orders received for Dilauded.
--- NOTE | 2020-03-20 22:37 | NUR ---
Patient complains of chills; vitals checked and temperature was 98.1. No fever detected at this time. Will continue to monitor patient.
[2020-03-21] MEDS: ACCU-CHEK COMFORT CURVE STRIP VI SCH ×4 (00:13→18:17)
[2020-03-21] MEDS: MEROPENEM 1GM IVPB 100 ML IV SCH ×3 (02:15→18:17)
[2020-03-21] MEDS: D5W/SOD CHLO 0.9% 1,000 ML IV SCH ×2 (03:15→09:44)
--- NOTE | 2020-03-21 04:51 | NUR ---
Temp of 100.1 F Patient given cooling measures; room thermometer changed to cooler setting, patient given ice pack to put on back of neck, took blanket off patient, and given cold ice water to sip on. Will continue to monitor.
[2020-03-21 05:00] VITALS: BP 142/72
[2020-03-21] MEDS: InsuLIN REG 1unit/0.01ml Soln (100units/ml) SC SCH ×4 (05:27→18:26)
[2020-03-21 05:39] LABS: Basophils # (auto) 0 10 ^3/uL (0-0.2); Eosinophils # (auto) 0 10 ^3/uL (0-0.8); Lymphocytes # (auto) 0.2 10 ^3/uL (0.4-5.4); Mean Corpuscular Hemoglobin 31.5 pg (28.0-32.0); Monocytes # (auto) 0.2 10 ^3/uL (0-1.3); Neutrophils # (auto) 0.4 10 ^3/uL (1.6-8.6); Platelet Count (auto) 53 10^3/uL (140-450)
[2020-03-21 05:42] LABS: Basophils % (auto) 1.5 % (0.0-2.0); Eosinophils % (auto) 3.7 % (0.0-7.0); Hematocrit 21.7 % (41.0-53.0); Hemoglobin 7.5 g/dL (13.5-17.5); Lymphocytes % (auto) 21.9 % (10.0-50.0); Mean Corpuscular Hgb Conc. 34.6 g/dL (32.0-36.0); Mean Corpuscular Volume 90.9 fL (80.0-100.0); Neutrophils % (auto) 52.8 % (37.0-80.0); Nucleated Red Blood Cells % 0.2 %; Red Blood Cells 2.39 10^6/uL (4.5-5.90); Red Cell Distribution Width 15.6 % (11.8-14.3)
[2020-03-21 05:49] LABS: Monocytes % (auto) 20.1 % (0.0-12.0); White Blood Cell 0.8 10^3/uL (4.4-10.8)
--- NOTE | 2020-03-21 05:57 | NUR ---
Critical Lab Value WBC 0.8 Hospitalist paged; hospitalist called back with no new orders given at this time. Will continue to monitor.
[2020-03-21 06:04] LABS: BUN/Creatinine Ratio 20.9; Bilirubin, Total 2.6 mg/dL (0.2-1.0); Calcium 7.5 mg/dL (8.5-10.1); Total Protein 5.5 g/dL (6.4-8.2)
[2020-03-21] MEDS: HYDROmorphone HCL 2 MG/ML VL IV PRN ×3 (06:48→20:28)
--- NOTE | 2020-03-21 06:52 | NUR ---
Patient Complains of Pain Patient given pain medication as prescribed. Will continue to monitor.
--- NOTE | 2020-03-21 07:24 | NUR ---
END OF SHIFT NOTE Endorse patient care to day shift RN. Patient AOX4, no S/S of distress or SOB.
--- NOTE | 2020-03-21 07:30 | NUR ---
Opening Shift Note Assumed care of patient, awake and alert. No S/S of distress/SOB or pain. Message left with Dr. Galindo's exchange concerning the patient's current critical lab values. Awaiting a call back from Dr. Galindo to obtain orders. Instructed on POC and to call for assist PRN, will continue to monitor for changes Q1hr and PRN.
--- NOTE | 2020-03-21 07:54 | NUR ---
Updated Dr. Bartholomew on patient's current status. Still awaiting call back from Dr. Galindo.
[2020-03-21 08:00] VITALS: BP 148/86
[2020-03-21 08:45] VITALS: BP 148/86
--- NOTE | 2020-03-21 08:48 | NUR ---
Dr. Galindo returned call. He is now aware of patient's current condition. Relayed wbc, hgb and plt count to him. No further orders received.
[2020-03-21] MEDS: CLOPIDOGREL BISULFATE 75 MG TAB PO SCH (09:45)
[2020-03-21] MEDS: ASPirin 81 mg TAB PO SCH (09:45)
[2020-03-21] MEDS: FILGRASTIM(TBO) 480 MCG/0.8 ML SYRG SC SCH (09:45)
[2020-03-21] MEDS: FAMOTIDINE (10MG/ML) 2ML VL IV SCH ×2 (09:45→22:00)
[2020-03-21] MEDS: CARVEDILOL 3.125 MG TAB PO SCH ×2 (09:46→22:00)
[2020-03-21] MEDS: LISINOPRIL 5 MG TAB PO SCH (09:46)
[2020-03-21 12:56] VITALS: BP 150/76
[2020-03-21 16:33] VITALS: BP 135/75
[2020-03-21 22:00] VITALS: BP 145/76
[2020-03-21] MEDS: ATORVASTATIN 20 MG TAB PO SCH (22:00)
[2020-03-22] MEDS: MEROPENEM 1GM IVPB 100 ML IV SCH ×2 (02:00→09:58)
[2020-03-22] MEDS: HYDROmorphone HCL 2 MG/ML VL IV PRN ×4 (04:52→22:26)
[2020-03-22 05:00] VITALS: BP 148/71
[2020-03-22] MEDS: InsuLIN REG 1unit/0.01ml Soln (100units/ml) SC SCH ×4 (06:25→18:22)
[2020-03-22 06:27] LABS: Potassium 4.4 mmol/L (3.5-5.1)
[2020-03-22] MEDS: ACCU-CHEK COMFORT CURVE STRIP VI SCH ×4 (06:27→18:22)
[2020-03-22 06:44] LABS: Albumin 2.2 g/dL (3.4-5.0); BUN/Creatinine Ratio 13.8; Bilirubin, Total 0.7 mg/dL (0.2-1.0)
[2020-03-22 06:45] LABS: Hemoglobin 8.8 g/dL (13.5-17.5); White Blood Cell 3.4 10^3/uL (4.4-10.8)
[2020-03-22 06:48] LABS: Hematocrit 25.3 % (41.0-53.0); Mean Corpuscular Hemoglobin 31.9 pg (28.0-32.0); Mean Corpuscular Hgb Conc. 34.8 g/dL (32.0-36.0); Mean Corpuscular Volume 91.7 fL (80.0-100.0); Platelet Count (auto) 54 10^3/uL (140-450); Red Blood Cells 2.76 10^6/uL (4.5-5.90); Red Cell Distribution Width 15.9 % (11.8-14.3)
[2020-03-22 07:02] LABS: Basophils % (manual) 0 (0.0-2.0); Blast Cells 0; Promyelocytes % 0; Reactive Lymphocytes 0
[2020-03-22 07:48] LABS: Band Neutrophils % (manual) 2; Eosinophils % (manual) 2 (0-7); Lymphocytes % (manual) 21 (10.0-50.0); Metamyelocytes % 1; Monocytes % (manual) 16 (0-12); Myelocytes % 2
[2020-03-22 08:33] VITALS: BP 151/75
--- NOTE | 2020-03-22 09:09 | NUR ---
Port a cath accessed by Meghana YTLER 20 G 3 4", good blood return, flush with 10 ml of NSS, patient tolerated well.
[2020-03-22] MEDS: CARVEDILOL 3.125 MG TAB PO SCH ×2 (09:57→22:27)
[2020-03-22] MEDS: CLOPIDOGREL BISULFATE 75 MG TAB PO SCH (09:57)
[2020-03-22] MEDS: LISINOPRIL 5 MG TAB PO SCH (09:57)
[2020-03-22] MEDS: ASPirin 81 mg TAB PO SCH (09:57)
[2020-03-22] MEDS: FILGRASTIM(TBO) 480 MCG/0.8 ML SYRG SC SCH (09:59)
[2020-03-22] MEDS: FAMOTIDINE (10MG/ML) 2ML VL IV SCH ×2 (09:59→22:26)
--- NOTE | 2020-03-22 12:44 | NUR ---
Nutrition Assessment Notes please see attached link for complete assessment Est energy needs ABW 97 [id number] (23-25 kcal/kg BW) Est protein needs: 97-116 g (1-1.2g/kg BW low alb) Will continue to monitor and reassess prn. Addendum: 03/22/20 at [address] Amended: Links added.
[2020-03-22 13:00] VITALS: BP 149/74
--- NOTE | 2020-03-22 16:05 | NUR ---
Spoke to Samreen Soni regarding transfer to [facility], she is working on in. Patient notified.
[2020-03-22] MEDS ORDERED: CEFTRIAXONE SODIUM 2 GM in D5W 5% 50 ML IV ONE (16:15)
[2020-03-22 16:54] VITALS: BP 151/75
--- NOTE | 2020-03-22 17:17 | NUR ---
I faxed higher level of [place] [facility] [facility] [phone] and was unable to speak with a live person or leave a message.
--- NOTE | 2020-03-22 19:30 | NUR ---
Opening Shift Note Assumed care of patient, awake and alert. No S/S of distress/SOB or pain. Instructed on POC and to call for assist PRN, will continue to monitor for changes Q1hr and PRN. Safety precautions maintained bed is in lowest position, bed rails 2x. Call light and bedside table are within reach.
--- NOTE | 2020-03-22 20:42 | NUR ---
Patient awaiting transfer to [facility] Spoke with transfer assisted sales representative Josh from [facility]. Still awaiting for an open bed. Will continue to monitor patient Q1 and PRN.
[2020-03-22 22:00] VITALS: BP 151/73
[2020-03-22] MEDS: ATORVASTATIN 20 MG TAB PO SCH (22:00)
--- NOTE | 2020-03-23 00:50 | NUR ---
CALL FROM [facility] [employer]ROLEUM ENGINEER. INFORMED ME THAT A BED BECAME AVAILABLE FOR TRANSFER. WILL CONTINUE TO MONITOR PATIENT Q1 AND PRN
--- NOTE | 2020-03-23 01:15 | NUR ---
Setting up transport services Spoke with Mary Ellen BURTON charter representative. Awaiting transport services. Will continue to monitor patient Q1 and PRN.
[2020-03-23] MEDS: InsuLIN REG 1unit/0.01ml Soln (100units/ml) SC SCH ×2 (01:19→06:00)
[2020-03-23 02:22] VITALS: BP 157/77
[2020-03-23] MEDS: HYDROmorphone HCL 2 MG/ML VL IV PRN (02:37)
--- NOTE | 2020-03-23 03:04 | NUR ---
CALL FROM [facility] [employer] [employer] COACH TRANSPORT DELAYED ANOTHER 60 MIN. WILL AWAIT TRANSPORT. WILL CONTINUE TO MONITOR PATIENT Q1 AND PRN.
[2020-03-23 03:07] VITALS: BP 157/77
--- NOTE | 2020-03-23 03:20 | NUR ---
GAVE REPORT TO RECEIVING NURSE, SUNITA TYLER [place] [facility] WILL CONTINUE TO MONITOR PATIENT Q1 AND PRN.
--- NOTE | 2020-03-23 04:25 | NUR ---
CALL FROM [facility], TRANSPORT [facility]PA[facility].TRANSPORT WILL BE DELAYED ANOTHER 90 MINUTES. WILL AWAIT TRANSFER. WILL CONTINUE TO MONITOR PATIENT Q1 AND PRN.
[2020-03-23 05:00] VITALS: BP 145/79
[2020-03-23] MEDS: ACCU-CHEK COMFORT CURVE STRIP VI SCH ×2 (06:00)
--- NOTE | 2020-03-23 06:00 | NUR ---
[facility] AT BEDSIDE. REPORT GIVEN TO [facility] TRANSPORT. [place] [facility] ALL DISCHARGE INSTRUCTIONS GIVEN TO PATIENT. WILL SEND TELE BOX TO ICU.
--- NOTE | 2020-03-23 06:03 | NUR ---
PATIENT TRANSFERRED/DISCHARGED TRANSPORTED TO [facility]. AT THIS TIME PATIENT HAS NO S/S OF DISTRESS OR SOB. PATIENT RESPONSIVE TO NAME AND TOUCH, NO COMPLAINTS. TELE BOX SENT TO ICU.
[2020-03-23] MEDS ORDERED: CEFTRIAXONE SODIUM 2 GM in D5W 5% 50 ML IV SCH (10:00)
== END 2020-03-23 06:05 | disposition short-term general hospital (02) | DRG 808 ==
LOC: ER 15:01 → TELE 15:02 → TELE-EAST 22:10
PROVIDERS: ADMIT Hospitalist; ATTEND Family Medicine
PROC: 30233R1 Transfusion of Nonautologous Platelets into Peripheral Vein, Percutaneous Approach (ICD-10-PCS; principal; 2020-03-20)
DX: D61.810 Antineoplastic chemotherapy induced pancytopenia (principal); I21.A1 Myocardial infarction type 2; R57.0 Cardiogenic shock; N17.0 Acute kidney failure with tubular necrosis; K83.1 Obstruction of bile duct; E43 Unspecified severe protein-calorie malnutrition; E87.1 Hypo-osmolality and hyponatremia; C25.9 Malignant neoplasm of pancreas, unspecified; K92.2 Gastrointestinal hemorrhage, unspecified; R78.81 Bacteremia; E83.51 Hypocalcemia; E11.65 Type 2 diabetes mellitus with hyperglycemia; R07.9 Chest pain, unspecified; E86.0 Dehydration; E11.21 Type 2 diabetes mellitus with diabetic nephropathy; D69.6 Thrombocytopenia, unspecified; E11.22 Type 2 diabetes mellitus with diabetic chronic kidney disease; I12.9 Hypertensive chronic kidney disease with stage 1 through stage 4 chronic kidney disease, or unspecified chronic kidney disease; Z82.49 Family history of ischemic heart disease and other diseases of the circulatory system; Z80.3 Family history of malignant neoplasm of breast; Z85.46 Personal history of malignant neoplasm of prostate; Z79.899 Other long term (current) drug therapy; Z79.82 Long term (current) use of aspirin; T45.1X5A Adverse effect of antineoplastic and immunosuppressive drugs, initial encounter; N18.9 Chronic kidney disease, unspecified; Z79.4 Long term (current) use of insulin; Z87.891 Personal history of nicotine dependence; Z90.411 Acquired partial absence of pancreas; Z92.3 Personal history of irradiation; Z11.59 Encounter for screening for other viral diseases
CPT/HCPCS: 36415; 74176; 78582; 80053; 80061; 80307; 81001; 82150; 82962; 83036; 83690; 83735; 84100; 84484; 85007; 85025; 85027; 85610; 85730; 86850; 86900; 86901; 87040; 87077; 87081; 87086; 87186; 93005; 93306; 96361; 96365; 96372; 96375; C9113; G0378; J0696; J1447; J1815; J2185; J2405; J3490; J7042; J7060

== ENCOUNTER 2020-03-25 16:45 | Inpatient (IN) | payer MEDICARE, OTHER ==
[~2020-03-25] VITALS: Ht 188 cm; Wt 87.0 kg
[~2020-03-25 16:45] MED LIST changes: +ASPI-498 PO; -ASPI81CH43; -ASPI81CH43 PO; -CALCTAB80; -INSLISPI; -INSU100I45 IJ; +INSU100I51 SC; +INSU1INJ5 SC; -INSUPOW; -LEVEMIR; -LEVEMIR SC; -LISI-275; -METO25TA5 OR; +OXY5T PO
[2020-03-25 20:37] VITALS: BP 139/67
[2020-03-25 21:43] VITALS: BP 139/67
[2020-03-25] MEDS ORDERED: TEMAZEPAM 15 MG CAP PO PRN (22:30)
[2020-03-25] MEDS ORDERED: cloNIDine HCL 0.1 MG TAB PO PRN (22:30)
[2020-03-25] MEDS ORDERED: HYDROcodone-ACET 5/325MG TAB PO PRN (22:30)
[2020-03-25] MEDS ORDERED: ACETAMINOPHEN 325 MG TAB PO PRN (22:30)
[2020-03-25] MEDS ORDERED: HYDROmorphone HCL 2 MG/ML VL IV PRN (22:30)
[2020-03-25] MEDS ORDERED: DEXTROSE (50%) 50ML SYRG IV PRN (22:30)
[2020-03-25] MEDS ORDERED: MEROPENEM 1GM IVPB 100 ML IV ONE (22:45)
[2020-03-25] MEDS: ONDANSETRON HCL 4 MG/2 ML VIAL IV PRN (23:15)
[2020-03-25 23:20] LABS: Basophils # (auto) 0 10 ^3/uL (0-0.2); Basophils % (auto) 0.3 % (0.0-2.0); Eosinophils # (auto) 0.1 10 ^3/uL (0-0.8); Hemoglobin 9.5 g/dL (13.5-17.5); Lymphocytes % (auto) 11.3 % (10.0-50.0); Mean Corpuscular Hemoglobin 30.7 pg (28.0-32.0); Mean Corpuscular Volume 90.5 fL (80.0-100.0); Monocytes # (auto) 1.2 10 ^3/uL (0-1.3); Monocytes % (auto) 12.7 % (0.0-12.0); Neutrophils % (auto) 74.7 % (37.0-80.0); Nucleated Red Blood Cells % 0.1 %; Platelet Count (auto) 175 10^3/uL (140-450); Red Blood Cells 3.09 10^6/uL (4.5-5.90); White Blood Cell 9.3 10^3/uL (4.4-10.8)
[2020-03-25 23:35] LABS: INR 1.31 (0.9-1.15)
[2020-03-25 23:43] LABS: Albumin 2.1 g/dL (3.4-5.0); BUN/Creatinine Ratio 13.2; Calcium 7.6 mg/dL (8.5-10.1); Potassium 3.5 mmol/L (3.5-5.1)
[2020-03-25 23:45] LABS: Bilirubin, Total 0.3 mg/dL (0.2-1.0); Total Protein 5.7 g/dL (6.4-8.2)
[2020-03-26] MEDS: HYDROmorphone HCL 2 MG/ML VL IV PRN ×4 (03:14→17:39)
[2020-03-26 05:00] VITALS: BP 154/88
[2020-03-26] MEDS ORDERED: MEROPENEM 1GM IVPB 50 ML IV SCH (06:00)
[2020-03-26] MEDS ORDERED: PATIENTS OWN MEDICATION (meropenem 1 GRAMS) IV SCH (06:00)
[2020-03-26] MEDS: InsuLIN REG 1unit/0.01ml Soln (100units/ml) SC SCH ×3 (06:17→17:00)
[2020-03-26] MEDS: ACCU-CHEK COMFORT CURVE STRIP VI SCH ×3 (06:17→17:00)
[2020-03-26] MEDS: MEROPENEM 1GM IVPB 100 ML IV SCH ×2 (08:44→14:00)
[2020-03-26 09:00] VITALS: BP 158/80
[2020-03-26] MEDS ORDERED: CLOPIDOGREL BISULFATE 75 MG TAB PO SCH (10:00)
[2020-03-26] MEDS ORDERED: LISINOPRIL 5 MG TAB PO SCH (10:00)
[2020-03-26] MEDS ORDERED: ASPirin 81 mg TAB PO SCH (10:00)
[2020-03-26] MEDS ORDERED: FAMOTIDINE 20 MG TAB PO SCH (10:00)
[2020-03-26 12:31] VITALS: BP 159/71
[2020-03-26] MEDS: ONDANSETRON HCL 4 MG/2 ML VIAL IV PRN ×2 (13:14→17:40)
[2020-03-26 14:00] VITALS: BP 159/71
[2020-03-26] MEDS ORDERED: cefTRIAXone 1GM/50ML D5W 50 ML IV ONE (15:15)
[2020-03-26] MEDS ORDERED: ATORVASTATIN 20 MG TAB PO SCH (22:00)
== END 2020-03-26 19:13 | disposition home health service (06) | DRG 445 ==
LOC: WEST WING 20:13
PROVIDERS: ADMIT Hospitalist; ATTEND Family Medicine
DX: K83.1 Obstruction of bile duct (principal); C25.9 Malignant neoplasm of pancreas, unspecified; E44.0 Moderate protein-calorie malnutrition; R78.81 Bacteremia; E11.9 Type 2 diabetes mellitus without complications; B96.20 Unspecified Escherichia coli [E. coli] as the cause of diseases classified elsewhere; I10 Essential (primary) hypertension; Z90.79 Acquired absence of other genital organ(s); Z82.49 Family history of ischemic heart disease and other diseases of the circulatory system; Z80.3 Family history of malignant neoplasm of breast; Z90.49 Acquired absence of other specified parts of digestive tract; Z92.21 Personal history of antineoplastic chemotherapy
CPT/HCPCS: 36415; 71045; 80053; 82962; 85025; 85610; 85730; 87040; 87081; G0378; J0696; J1642; J2185; J2405

== ENCOUNTER → 2020-04-04 | Emergency (ER) | payer MEDICARE, OTHER ==
[~2020-04-04] VITALS: Ht 182.9 cm; Wt 83.9 kg
[~2020-04-04] MED LIST changes: +FLEET MINERAL OIL ENEMA 133 ML PR ONE; +HYDROmorphone HCL 2 MG/ML VL IV ONE
[2020-04-04 10:27] LABS: Basophils # (auto) 0.1 10 ^3/uL (0-0.2); Basophils % (auto) 0.7 % (0.0-2.0); Eosinophils # (auto) 0.1 10 ^3/uL (0-0.8); Eosinophils % (auto) 1.3 % (0.0-7.0); Hematocrit 27.1 % (41.0-53.0); Hemoglobin 9.1 g/dL (13.5-17.5); Lymphocytes # (auto) 0.8 10 ^3/uL (0.4-5.4); Lymphocytes % (auto) 9.2 % (10.0-50.0); Mean Corpuscular Hemoglobin 30.8 pg (28.0-32.0); Mean Corpuscular Hgb Conc. 33.7 g/dL (32.0-36.0); Mean Corpuscular Volume 91.4 fL (80.0-100.0); Monocytes # (auto) 0.9 10 ^3/uL (0-1.3); Monocytes % (auto) 10.1 % (0.0-12.0); Neutrophils # (auto) 6.6 10 ^3/uL (1.6-8.6); Neutrophils % (auto) 78.7 % (37.0-80.0); Platelet Count (auto) 281 10^3/uL (140-450); Red Blood Cells 2.96 10^6/uL (4.5-5.90); Red Cell Distribution Width 16.2 % (11.8-14.3); White Blood Cell 8.4 10^3/uL (4.4-10.8)
[2020-04-04 10:44] LABS: Potassium 3.9 mmol/L (3.5-5.1)
[2020-04-04 10:47] LABS: BUN/Creatinine Ratio 17.5; Bilirubin, Total 0.3 mg/dL (0.2-1.0); Total Protein 6.4 g/dL (6.4-8.2)
[2020-04-04 11:43] LABS: Urine WBC None Seen /hpf (0 - 3)
[2020-04-04 12:02] LABS: Urine Bacteria NONE SEEN /hpf (None Seen); Urine Blood Negative /uL (Negative)
[2020-04-04 12:54] VITALS: BP 127/50
== END | disposition home or self-care (01) ==
LOC: EDUNIT# 07:55 → EDBD 08:13 → ER 08:13
DX: C25.9 Malignant neoplasm of pancreas, unspecified (principal); D64.9 Anemia, unspecified; E43 Unspecified severe protein-calorie malnutrition; K59.00 Constipation, unspecified; E11.9 Type 2 diabetes mellitus without complications; I10 Essential (primary) hypertension; F17.210 Nicotine dependence, cigarettes, uncomplicated
CPT/HCPCS: 36415; 74176; 80053; 81001; 83690; 85025; 93005; 96374; 99285; J1170

== ENCOUNTER 2020-04-06 19:20 | Inpatient (IN) | payer MEDICARE, OTHER ==
[~2020-04-06] VITALS: Ht 188 cm; Wt 92.5 kg
[~2020-04-06 19:20] MED LIST changes: -FLEET MINERAL OIL ENEMA 133 ML PR ONE; -HYDROmorphone HCL 2 MG/ML VL IV ONE
[2020-04-06] MEDS ORDERED: SODIUM CHLORIDE 0.9% 1,000 ML IVB ONE (20:57)
[2020-04-06] MEDS ORDERED: ONDANSETRON HCL 4 MG/2 ML VIAL IV ONE (21:00)
[2020-04-06] MEDS ORDERED: PIPERACILLIN-TAZOB 3.375GM 100 ML IV ONE (21:00)
[2020-04-06] MEDS ORDERED: metroNIDAZOLE 500MG/100ML 100 ML IV ONE (21:00)
[2020-04-06] MEDS ORDERED: HYDROmorphone HCL 2 MG/ML VL IV ONE (21:00)
[2020-04-06 21:43] LABS: Basophils # (auto) 0 10 ^3/uL (0-0.2); Basophils % (auto) 0.3 % (0.0-2.0); Eosinophils # (auto) 0 10 ^3/uL (0-0.8); Eosinophils % (auto) 0.1 % (0.0-7.0); Hematocrit 29.5 % (41.0-53.0); Hemoglobin 9.8 g/dL (13.5-17.5); Lymphocytes # (auto) 0.1 10 ^3/uL (0.4-5.4); Lymphocytes % (auto) 1.4 % (10.0-50.0); Mean Corpuscular Hgb Conc. 33.3 g/dL (32.0-36.0); Mean Corpuscular Volume 93.3 fL (80.0-100.0); Monocytes # (auto) 0.2 10 ^3/uL (0-1.3); Monocytes % (auto) 2.3 % (0.0-12.0); Neutrophils # (auto) 7.2 10 ^3/uL (1.6-8.6); Neutrophils % (auto) 95.9 % (37.0-80.0); Nucleated Red Blood Cells % 0.1 %; Platelet Count (auto) 158 10^3/uL (140-450); Red Blood Cells 3.16 10^6/uL (4.5-5.90); Red Cell Distribution Width 17.2 % (11.8-14.3); White Blood Cell 7.5 10^3/uL (4.4-10.8)
[2020-04-06 22:00] LABS: INR 1.37 (0.9-1.15); Partial Thromboplastin Time 25.7 sec (23.64-32.05)
[2020-04-06 22:04] LABS: Albumin 2.1 g/dL (3.4-5.0); Magnesium 1.4 mg/dL (1.6-2.6); Potassium 4.7 mmol/L (3.5-5.1)
[2020-04-06 22:09] LABS: Bilirubin, Total 0.8 mg/dL (0.2-1.0); Total Protein 6.7 g/dL (6.4-8.2)
[2020-04-06 22:11] LABS: BUN/Creatinine Ratio 15.7
[2020-04-07] MEDS ORDERED: HYDROmorphone HCL 2 MG/ML VL IV ONE (01:00)
[2020-04-07] MEDS ORDERED: DEXTROSE (50%) 50ML SYRG IV PRN (04:30)
[2020-04-07] MEDS ORDERED: VANCOMYCIN 1GM/250ML 250 ML IV ONE (04:30)
[2020-04-07] MEDS ORDERED: SODIUM CHLORIDE 0.9% 1,000 ML IV SCH (04:30)
[2020-04-07] MEDS ORDERED: VANCOMYCIN PER PHARMACY 0 MG IV SCH (04:30)
[2020-04-07] MEDS ORDERED: ONDANSETRON HCL 4 MG/2 ML VIAL IV PRN (04:30)
[2020-04-07] MEDS: MAGNESIUM SULFATE 1GM/100ML 100 ML IV SCH ×2 (04:50→08:37)
[2020-04-07 05:15] VITALS: BP 151/79
--- NOTE | 2020-04-07 05:16 | NUR ---
MS admit from ER Patient admitted to tele/MS. Patient oriented to primary RN, unit, room, bed, and unit policies regarding patient care and visiting hours. Patient weighed by bedscale and encouraged to call if they need something. All questions and concerns addressed, patient verbalized understanding. Safety precautions maintained be dis in lowest position and locked, bed rails 2x. Call light and bedside table are within reach.
[2020-04-07] MEDS: HYDROmorphone HCL 2 MG/ML VL IV PRN ×4 (05:39→19:57)
[2020-04-07] MEDS: InsuLIN REG 1unit/0.01ml Soln (100units/ml) SC SCH ×4 (06:27→21:50)
--- NOTE | 2020-04-07 06:28 | NUR ---
Critical blood sugar Patient BG 402. Administered 10 units of Insulin R, per protocol. Paged hospitalist, awaiting call back.
--- NOTE | 2020-04-07 06:35 | NUR ---
Call back from hospitalist Made hospitalist aware of critical blood sugar. No new orders received. Will continue to monitor patient Q1 and PRN
[2020-04-07] MEDS: ACCU-CHEK COMFORT CURVE STRIP VI SCH ×4 (07:00→21:50)
--- NOTE | 2020-04-07 07:30 | NUR ---
End of Shift Note Endorsed care to dayshift RN. At this time patient has no s/s of distress or SOB, no complaints.
--- NOTE | 2020-04-07 07:30 | NUR ---
OPENING NOTE ASSUMED CARE OF PT. ALERT AND ORIENTED. NO S/S OF SOB/DISTRESS NOTED. BED SET TO LOWEST POSITION/LOCKED, BEDSIDE RAILS UP X2, CALL LIGHT WITHIN REACH. INSTRUCTED PT TO CALL FOR ASSISTANCE. UPDATED ON POC. WILL CONTINUE TO MONITOR Q1HR AND PRN.
[2020-04-07 08:20] VITALS: BP 133/78
[2020-04-07] MEDS: PIPERACILLIN-TAZOB 3.375GM 100 ML IV SCH ×4 (08:38→23:35)
[2020-04-07] MEDS ORDERED: MAGNESIUM SULFATE 1GM/100ML 100 ML IV ONE (08:41)
[2020-04-07] MEDS: PANTOPRAZOLE 40 MG/10 ML VIAL INJ IV SCH (09:48)
[2020-04-07 11:59] VITALS: BP 146/64
--- NOTE | 2020-04-07 12:08 | NUR ---
Nutrition Assessment/consult Notes please see attached link for complete assessment Est Energy needs BW 84 [id number] kcals (25-30 kcal/kgBW), Est Protein needs: 84-109 gms/day (1.0-1.3 gm/kgBW r/t severe hypoalb).Will continue to monitor and reassess prn. Addendum: 04/07/20 at [address] Amended: Links added.
[2020-04-07] MEDS: VANCOMYCIN 1GM/250ML 250 ML IV SCH (15:21)
[2020-04-07] MEDS: SODIUM CHLORIDE 0.9% 1,000 ML IV SCH ×2 (15:21→22:15)
[2020-04-07 16:43] VITALS: BP 148/88
--- NOTE | 2020-04-07 19:05 | NUR ---
URINE SAMPLE URINE SAMPLE COLLECTED AND SET TO LAB.
--- NOTE | 2020-04-07 19:15 | NUR ---
assumed care, pt. awake, no c/o pain, no sob.
[2020-04-07 19:35] LABS: Urine Bacteria NONE SEEN /hpf (None Seen); Urine Blood TRACE /uL (Negative); Urine Hyaline Cast FEW /lpf (0 - 2); Urine WBC <1 /hpf (0 - 3)
[2020-04-07 22:00] VITALS: BP 152/88
[2020-04-08] MEDS: VANCOMYCIN 1GM/250ML 250 ML IV SCH (01:07)
[2020-04-08] MEDS: HYDROmorphone HCL 2 MG/ML VL IV PRN ×5 (02:31→22:40)
[2020-04-08 05:00] VITALS: BP 146/77
[2020-04-08] MEDS: PIPERACILLIN-TAZOB 3.375GM 100 ML IV SCH ×4 (05:30→23:37)
[2020-04-08] MEDS: SODIUM CHLORIDE 0.9% 1,000 ML IV SCH ×3 (06:15→22:39)
[2020-04-08] MEDS: InsuLIN REG 1unit/0.01ml Soln (100units/ml) SC SCH ×4 (06:15→21:27)
[2020-04-08] MEDS: ACCU-CHEK COMFORT CURVE STRIP VI SCH ×4 (06:15→21:27)
[2020-04-08 06:28] LABS: Hematocrit 27.2 % (41.0-53.0); Hemoglobin 9.2 g/dL (13.5-17.5); Mean Corpuscular Hemoglobin 30.8 pg (28.0-32.0); Mean Corpuscular Hgb Conc. 33.7 g/dL (32.0-36.0); Mean Corpuscular Volume 91.4 fL (80.0-100.0); Platelet Count (auto) 124 10^3/uL (140-450); Red Blood Cells 2.98 10^6/uL (4.5-5.90); White Blood Cell 5.8 10^3/uL (4.4-10.8)
[2020-04-08 06:52] LABS: Potassium 4.3 mmol/L (3.5-5.1)
[2020-04-08 07:02] LABS: Band Neutrophils % (manual) 0; Blast Cells 0; Eosinophils % (manual) 0 (0-7); Metamyelocytes % 0; Myelocytes % 0; Promyelocytes % 0; Reactive Lymphocytes 0
[2020-04-08 07:10] LABS: Albumin 1.8 g/dL (3.4-5.0); BUN/Creatinine Ratio 13.8; Bilirubin, Total 0.5 mg/dL (0.2-1.0); Calcium 7.7 mg/dL (8.5-10.1); Total Protein 6.3 g/dL (6.4-8.2)
[2020-04-08 07:27] LABS: Basophils % (manual) 1 (0.0-2.0); Lymphocytes % (manual) 7 (10.0-50.0); Monocytes % (manual) 6 (0-12)
[2020-04-08 09:00] VITALS: BP 148/88
[2020-04-08] MEDS: PANTOPRAZOLE 40 MG/10 ML VIAL INJ IV SCH (09:21)
[2020-04-08 12:40] VITALS: BP 142/76
[2020-04-08] MEDS ORDERED: LACTULOSE 20Gm/30ML SOLN PO PRN (13:30)
--- NOTE | 2020-04-08 13:59 | NUR ---
assessment Patient is a 69 year old male who is alert and oriented. Patients cognitive abilities are intact. Prior to admission patient lived home with family and functioned independently. Per patients daughter Tracy he will return home to his prior living arrangements post discharge and family will transport him home. Per patients daughter Tracy patient is on service with [employer] and [facility]. Patient has good family support. Patients PCP is Dr Hernandez. Patient will follow up with PCP after discharge. I will continue to monitor and follow up as appropriate. I informed patient he has a right to speak to a social sciences research scientist regarding all care. I informed patient he has a right to participate in any and all discharge planning. Patient does not have a POA and advanced directive. I have offered patient information on POA and advanced directives. I informed the patient the advantages and benefits of having an Advanced Directive. Patient verbalized understanding and agreed to discharge plan. Addendum: 04/08/20 at 1401 by Taryn CHAPA Amended: Links added.
[2020-04-08 16:36] VITALS: BP 158/76
--- NOTE | 2020-04-08 19:15 | NUR ---
ASSUMED CARE, PT. AWAKE, NO C/O PAIN, NOT IN DISTRESS.
[2020-04-08] MEDS: PANTOPRAZOLE 40 MG TAB PO SCH (21:26)
[2020-04-08] MEDS: DOCUSATE SOD 100 MG CAP PO SCH (21:26)
[2020-04-08 22:00] VITALS: BP 159/78
--- NOTE | 2020-04-09 02:31 | NUR ---
PT. HAD A BLOOD IN STOOL IN SMALL AMOUNT, TO KEEP MONITOR.
[2020-04-09] MEDS: HYDROmorphone HCL 2 MG/ML VL IV PRN ×6 (02:36→23:55)
[2020-04-09 05:00] VITALS: BP 149/88
[2020-04-09] MEDS: PIPERACILLIN-TAZOB 3.375GM 100 ML IV SCH ×2 (05:30→11:58)
[2020-04-09] MEDS: SODIUM CHLORIDE 0.9% 1,000 ML IV SCH ×3 (05:31→22:15)
--- NOTE | 2020-04-09 06:00 | NUR ---
V/S STABLE, NO C/O PAIN AT THIS TIME, NO BLOOD IN STOOL NOTED.
[2020-04-09] MEDS: InsuLIN REG 1unit/0.01ml Soln (100units/ml) SC SCH ×4 (06:24→22:37)
[2020-04-09] MEDS: ACCU-CHEK COMFORT CURVE STRIP VI SCH ×4 (06:25→22:34)
[2020-04-09 09:00] VITALS: BP 149/73
[2020-04-09] MEDS: PANTOPRAZOLE 40 MG TAB PO SCH ×2 (09:17→22:32)
[2020-04-09] MEDS: DOCUSATE SOD 100 MG CAP PO SCH ×2 (09:17→22:31)
[2020-04-09 13:00] VITALS: BP 157/76
[2020-04-09] MEDS ORDERED: ERTAPENEM SOD INJ 1 GM in SODIUM CHL 0.9% 50 ML IV ONE (13:00)
[2020-04-09 17:27] VITALS: BP 123/81
[2020-04-09 20:00] VITALS: BP 158/81
[2020-04-10] MEDS: SODIUM CHLORIDE 0.9% 1,000 ML IV SCH ×2 (03:56→14:29)
[2020-04-10] MEDS: HYDROmorphone HCL 2 MG/ML VL IV PRN ×5 (03:56→21:25)
[2020-04-10 05:00] VITALS: BP_SYST 136; BP_SYST 157; BP_DIAS 83; BP_DIAS 86
[2020-04-10] MEDS: InsuLIN REG 1unit/0.01ml Soln (100units/ml) SC SCH ×4 (06:32→21:30)
[2020-04-10] MEDS: ACCU-CHEK COMFORT CURVE STRIP VI SCH ×4 (06:32→21:26)
[2020-04-10 08:00] VITALS: BP 110/64
[2020-04-10 08:30] VITALS: BP 159/78
[2020-04-10] MEDS: DOCUSATE SOD 100 MG CAP PO SCH ×2 (08:45→21:26)
[2020-04-10] MEDS: PANTOPRAZOLE 40 MG TAB PO SCH ×2 (08:46→21:25)
[2020-04-10] MEDS: ERTAPENEM SOD INJ 1 GM in SODIUM CHL 0.9% 50 ML IV SCH (09:05)
[2020-04-10 13:09] VITALS: BP 162/84
[2020-04-10 16:00] VITALS: BP 149/78
--- NOTE | 2020-04-10 19:10 | NUR ---
Received patient in bed alert and responsive, no s/sx of distress noted. IV NS infusing to right upper chest port a cath.
[2020-04-10 22:00] VITALS: BP 163/82
[2020-04-11] MEDS: SODIUM CHLORIDE 0.9% 1,000 ML IV SCH ×3 (00:42→15:28)
[2020-04-11] MEDS: HYDROmorphone HCL 2 MG/ML VL IV PRN ×5 (01:02→23:44)
[2020-04-11 05:00] VITALS: BP 186/81
[2020-04-11] MEDS: InsuLIN REG 1unit/0.01ml Soln (100units/ml) SC SCH ×4 (06:16→21:35)
[2020-04-11] MEDS: ACCU-CHEK COMFORT CURVE STRIP VI SCH ×4 (06:18→21:29)
[2020-04-11 08:00] VITALS: BP 110/64
[2020-04-11] MEDS: DOCUSATE SOD 100 MG CAP PO SCH ×2 (09:17→21:29)
[2020-04-11] MEDS: PANTOPRAZOLE 40 MG TAB PO SCH ×2 (09:17→21:29)
--- NOTE | 2020-04-11 12:02 | NUR ---
Nutrition Followup Note Wt 91.1kg Pt was awake and oriented at time of rounds. pt reports appetite is coming back after having abd pain with a poor appetite. Pt po intake is adequate aeb pt po intake avg of 92% 04/10 per RN note Est Energy needs BW 84 [id number] kcals (25-30 kcal/kgBW), Est Protein needs: 84-109 gms/day (1.0-1.3 gm/kgBW r/t severe hypoalb).Will continue to monitor and reassess prn. Labs: Gluc 210H, Ca 7.7L, Alb 1.8L BM: Pt with 2 BMs 04/10 per Rn note Skin: BS 23 low risk full details in direct care counselor note PES: Increased nutrient needs r/t chronic medical condition aeb pt`s npo with cancer and wt loss Altered nutrition related lab values r.t current chronic medical condition aeb hyperglcyemia, severe hypoalb Comments 1) Continue to monitor po intake, labs, skin 3) consider prostat 1 packet bid as medically feasible 4) continue current plan of care Expected Outcomes/Goals: pt will have improved labs pt will not lose any more wt F/u high 3-5 days
[2020-04-11] MEDS: ERTAPENEM SOD INJ 1 GM in SODIUM CHL 0.9% 50 ML IV SCH (12:09)
[2020-04-11 13:00] VITALS: BP 160/82
[2020-04-11 16:59] VITALS: BP 162/98
[2020-04-11 22:00] VITALS: BP 158/78
[2020-04-12] MEDS: SODIUM CHLORIDE 0.9% 1,000 ML IV SCH ×3 (00:16→14:20)
[2020-04-12] MEDS: HYDROmorphone HCL 2 MG/ML VL IV PRN ×3 (03:41→14:16)
[2020-04-12 05:00] VITALS: BP 167/81
--- NOTE | 2020-04-12 05:12 | NUR ---
Patient c/o abdominal pain 04/09 last pain medication given less than 2 hours ago. Called Hospitalist awaiting call back.
--- NOTE | 2020-04-12 05:15 | NUR ---
Hospitalist called with new orders noted and carried out.
[2020-04-12] MEDS ORDERED: HYDROmorphone HCL 2 MG/ML VL IV ONE (05:30)
[2020-04-12] MEDS: ACCU-CHEK COMFORT CURVE STRIP VI SCH ×3 (06:39→16:59)
[2020-04-12] MEDS: InsuLIN REG 1unit/0.01ml Soln (100units/ml) SC SCH ×3 (06:39→16:59)
[2020-04-12 08:00] VITALS: BP 152/77
--- NOTE | 2020-04-12 08:00 | NUR ---
OPENING SHIFT NOTE ASSUMED CARE OF PATIENT AWAKE AND ALERT. NO S/S OF DISTRESS NOTED. PATIENT HAS A COMPLAINT OF 8/10 ABDOMINAL PAIN, WILL MEDICATE PER MD ORDER AND MAR. PATIENT UPDATED ON POC FOR THE DAY AND ALL QUESTIONS ANSWERED. BED IS IN LOWEST, LOCKED POSITION WITH SIDE RAILS UPX2 AND CALL LIGHT WITHIN REACH. WILL CONTINUE TO MONITOR Q1H AND PRN.
[2020-04-12] MEDS: PANTOPRAZOLE 40 MG TAB PO SCH (10:04)
[2020-04-12] MEDS: DOCUSATE SOD 100 MG CAP PO SCH (10:04)
[2020-04-12 11:20] VITALS: BP 152/77
[2020-04-12] MEDS: ERTAPENEM SOD INJ 1 GM in SODIUM CHL 0.9% 50 ML IV SCH (11:39)
[2020-04-12 12:00] VITALS: BP 142/76
--- NOTE | 2020-04-12 13:47 | NUR ---
1300 04/12/20 - Faxed to [facility] at [phone] face sheet, ORDER FOR IV ABx ( Invanz 1 gm daily) through port a cath x 2 weeks, labs, H/P, meds, discharge summary.
--- NOTE | 2020-04-12 15:28 | NUR ---
D/C Planning Per SS consult for home health IV Invanz 1g IV daily through port-a-cath for two weeks. Per II patient is on service with [facility]. Faxed clinical information to agency. Per Makenzie with [facility] they will resume care for patient and will be seen within 24hrs upon d/c.
[2020-04-12 17:01] VITALS: BP 119/80
--- NOTE | 2020-04-12 17:34 | NUR ---
SPOKE WITH DAUGHTER DAUGHTER MARCO ANTONIO HAS SET UP DELIVERY TIME AND MADE THEIR COPAY WITH [facility].
--- NOTE | 2020-04-12 18:15 | NUR ---
Discharge instructions given as ordered. Encourage to follow up with PMD as instructed. All questions and concerns addressed. Patient verbalized understanding. Patient taken to vehicle via wheelchair with all personal belongings, accompanied by staff. No distress noted at time of departure.
== END 2020-04-12 18:15 | disposition home health service (06) | DRG 872 ==
LOC: EDBD 19:20 → ER 19:20 → EEVIPCON 19:20 → OVERFLOW 19:21 → CENTRAL 04-07 05:15
PROVIDERS: ADMIT Nurse Practitioner; ATTEND Family Medicine
DX: A41.51 Sepsis due to Escherichia coli [E. coli] (principal); C25.0 Malignant neoplasm of head of pancreas; N39.0 Urinary tract infection, site not specified; E44.0 Moderate protein-calorie malnutrition; D63.8 Anemia in other chronic diseases classified elsewhere; E83.42 Hypomagnesemia; I10 Essential (primary) hypertension; Z82.49 Family history of ischemic heart disease and other diseases of the circulatory system; Z80.3 Family history of malignant neoplasm of breast; Z85.07 Personal history of malignant neoplasm of pancreas; Z90.410 Acquired total absence of pancreas; Z92.21 Personal history of antineoplastic chemotherapy; Z88.5 Allergy status to narcotic agent; Z90.49 Acquired absence of other specified parts of digestive tract; E11.9 Type 2 diabetes mellitus without complications; K59.00 Constipation, unspecified
CPT/HCPCS: 36415; 36600; 74176; 80053; 81001; 82140; 82150; 82805; 82962; 83605; 83690; 83735; 85007; 85025; 85027; 85610; 85730; 86141; 87040; 87077; 87081; 87086; 87186; 93005; 96365; 96366; 96368; 96374; 96375; 96376; C9113; G0378; J1335; J1815; J2405; J2543; J3490

== ENCOUNTER 2020-04-15 20:44 | Emergency (ER) | payer MEDICARE, OTHER ==
[~2020-04-15] VITALS: Ht 188 cm; Wt 86.6 kg
[2020-04-15 23:01] LABS: Basophils # (auto) 0.1 10 ^3/uL (0-0.2); Basophils % (auto) 2.1 % (0.0-2.0); Eosinophils # (auto) 0.3 10 ^3/uL (0-0.8); Eosinophils % (auto) 5.4 % (0.0-7.0); Hematocrit 32.6 % (41.0-53.0); Hemoglobin 10.6 g/dL (13.5-17.5); Lymphocytes # (auto) 0.7 10 ^3/uL (0.4-5.4); Mean Corpuscular Hemoglobin 29.6 pg (28.0-32.0); Mean Corpuscular Hgb Conc. 32.6 g/dL (32.0-36.0); Mean Corpuscular Volume 90.9 fL (80.0-100.0); Monocytes # (auto) 0.5 10 ^3/uL (0-1.3); Monocytes % (auto) 9.5 % (0.0-12.0); Neutrophils # (auto) 3.9 10 ^3/uL (1.6-8.6); Nucleated Red Blood Cells % 0.1 %; Platelet Count (auto) 237 10^3/uL (140-450); Red Blood Cells 3.58 10^6/uL (4.5-5.90); Red Cell Distribution Width 17.4 % (11.8-14.3); White Blood Cell 5.6 10^3/uL (4.4-10.8)
[2020-04-15] MEDS ORDERED: HYDROmorphone HCL 2 MG/ML VL IV ONE (23:15)
[2020-04-15] MEDS ORDERED: ONDANSETRON HCL 4 MG/2 ML VIAL IV ONE (23:15)
[2020-04-15] MEDS ORDERED: SODIUM CHLORIDE 0.9% 500 ML IV ONE ×2 (23:15→23:45)
[2020-04-15 23:24] LABS: Alanine Aminotransferase 26 U/L (16-61); Amylase 10 U/L (25-115); Anion Gap 8 (5-15); Aspartate Aminotransferase 38 U/L (15-37); BUN/Creatinine Ratio 9.4; Blood Urea Nitrogen 10 mg/dL (7-18); Calcium 8.2 mg/dL (8.5-10.1); Carbon Dioxide 26 mmol/L (21-32); Chloride 100 mmol/L (98-107); GFR African American 89 mL/min; GFR Non-African American 74 mL/min; Glucose 112 mg/dL (74-106); Lipase < 10 U/L (73-393); Magnesium 1.6 mg/dL (1.6-2.6); Sodium 134 mmol/L (136-145)
[2020-04-15 23:27] LABS: INR 1.19 (0.9-1.15); Partial Thromboplastin Time 27.7 sec (23.64-32.05)
[2020-04-15 23:29] LABS: Alkaline Phosphatase 275 U/L (45-117); Bilirubin, Total 0.6 mg/dL (0.2-1.0); Total Protein 7.1 g/dL (6.4-8.2)
[2020-04-16] MEDS ORDERED: IOHEXOL 300 MG/ML 100ML BOTTLE IJ ONE ×2 (01:01→01:08)
[2020-04-16 04:01] VITALS: BP 163/61
== END 2020-04-16 05:33 | disposition home or self-care (01) ==
LOC: EDBD 20:44 → ER 20:44
DX: C25.9 Malignant neoplasm of pancreas, unspecified (principal); E11.9 Type 2 diabetes mellitus without complications; I10 Essential (primary) hypertension; F17.210 Nicotine dependence, cigarettes, uncomplicated
CPT/HCPCS: 36415; 70450; 74177; 80053; 82150; 83605; 83690; 83735; 84484; 85025; 85610; 85730; 86141; 87040; 96374; 96375; 99285; J1170; J2405; Q9967

== ENCOUNTER 2020-04-16 18:37 | Inpatient (IN) | payer MEDICARE, OTHER ==
[~2020-04-16] VITALS: Ht 182.9 cm; Wt 89.5 kg
[2020-04-16] MEDS ORDERED: SODIUM CHLORIDE 0.9% 1,000 ML IV ONE ×2 (19:00→19:15)
[2020-04-16] MEDS ORDERED: PIPERACILLIN-TAZOB 3.375GM 100 ML IV ONE ×2 (21:00→21:30)
[2020-04-16] MEDS ORDERED: HYDROmorphone HCL 2 MG/ML VL IV ONE (21:45)
[2020-04-16] MEDS ORDERED: VANCOMYCIN 1GM/250ML 250 ML IV ONE (21:45)
[2020-04-16 22:23] LABS: Basophils # (auto) 0.1 10 ^3/uL (0-0.2); Basophils % (auto) 1.1 % (0.0-2.0); Eosinophils # (auto) 0 10 ^3/uL (0-0.8); Eosinophils % (auto) 0.7 % (0.0-7.0); Hematocrit 32.2 % (41.0-53.0); Hemoglobin 10.6 g/dL (13.5-17.5); Lymphocytes # (auto) 0.5 10 ^3/uL (0.4-5.4); Lymphocytes % (auto) 8.8 % (10.0-50.0); Mean Corpuscular Hemoglobin 30.4 pg (28.0-32.0); Mean Corpuscular Volume 92.1 fL (80.0-100.0); Monocytes # (auto) 0.3 10 ^3/uL (0-1.3); Monocytes % (auto) 5.8 % (0.0-12.0); Neutrophils % (auto) 83.6 % (37.0-80.0); Nucleated Red Blood Cells % 0.1 %; Platelet Count (auto) 236 10^3/uL (140-450); Red Cell Distribution Width 17.1 % (11.8-14.3)
[2020-04-16 22:37] LABS: INR 1.23 (0.9-1.15); Partial Thromboplastin Time 24.9 sec (23.64-32.05)
[2020-04-16 22:38] LABS: Amylase 7 U/L (25-115); Calcium 7.9 mg/dL (8.5-10.1); Lipase < 10 U/L (73-393); Magnesium 1.7 mg/dL (1.6-2.6); Potassium 4.6 mmol/L (3.5-5.1)
[2020-04-16 22:44] LABS: BUN/Creatinine Ratio 10.3; Bilirubin, Total 0.7 mg/dL (0.2-1.0); Total Protein 6.8 g/dL (6.4-8.2)
[2020-04-16] MEDS ORDERED: PANTOPRAZOLE 40 MG/10 ML VIAL INJ IV ONE (22:45)
[2020-04-16] MEDS ORDERED: PANTOPRAZOLE 40mg/50ML NS AE 50 ML IV ONE (22:45)
[2020-04-17] MEDS ORDERED: HYDROmorphone HCL 2 MG/ML VL IV ONE (01:45)
[2020-04-17] MEDS ORDERED: NITROGLYCERIN 0.4 MG SL TAB SL PRN (03:30)
[2020-04-17] MEDS ORDERED: DEXTROSE (50%) 50ML SYRG IV PRN (03:30)
[2020-04-17] MEDS: ACCU-CHEK COMFORT CURVE STRIP VI SCH ×5 (04:00→20:15)
[2020-04-17] MEDS: InsuLIN REG 1unit/0.01ml Soln (100units/ml) SC SCH ×5 (04:00→20:19)
[2020-04-17 05:27] VITALS: BP 159/85
[2020-04-17] MEDS: metroNIDAZOLE 500MG/100ML 100 ML IV SCH ×2 (05:57→12:33)
[2020-04-17] MEDS ORDERED: INSULIN ASPART 20 UNIT SC SCH (06:00)
[2020-04-17] MEDS ORDERED: ONDANSETRON HCL 4 MG/2 ML VIAL IV PRN (06:15)
[2020-04-17] MEDS ORDERED: HYDROmorphone HCL 2 MG/ML VL IV PRN (06:15)
[2020-04-17] MEDS: HYDROmorphone HCL 2 MG/ML VL IV PRN ×5 (06:39→22:08)
[2020-04-17 08:42] VITALS: BP 142/89
[2020-04-17] MEDS: PANTOPRAZOLE 40 MG/10 ML VIAL INJ IV SCH ×2 (09:51→22:08)
[2020-04-17] MEDS: LISINOPRIL 20 MG TAB PO SCH (09:52)
[2020-04-17] MEDS ORDERED: INSULIN DETEMIR 20 UNIT SC SCH (10:00)
[2020-04-17] MEDS ORDERED: cefTRIAXone 1GM/50ML D5W 50 ML IV SCH (10:00)
[2020-04-17 12:42] VITALS: BP 130/71
[2020-04-17] MEDS ORDERED: ERTAPENEM SOD INJ 1 GM in SODIUM CHL 0.9% 50 ML IV ONE (14:45)
[2020-04-17 17:00] VITALS: BP 141/74
[2020-04-17 22:53] VITALS: BP 163/77
[2020-04-18] VITALS (7 sets, daily range): BP systolic 128–182; BP diastolic 64–82
[2020-04-18] MEDS: ACCU-CHEK COMFORT CURVE STRIP VI SCH ×6 (00:01→20:28)
[2020-04-18] MEDS: InsuLIN REG 1unit/0.01ml Soln (100units/ml) SC SCH ×6 (00:10→20:00)
[2020-04-18] MEDS: HYDROmorphone HCL 2 MG/ML VL IV PRN ×7 (00:11→20:30)
[2020-04-18 06:12] LABS: Basophils # (auto) 0.1 10 ^3/uL (0-0.2); Basophils % (auto) 1.2 % (0.0-2.0); Eosinophils # (auto) 0.3 10 ^3/uL (0-0.8); Eosinophils % (auto) 5.2 % (0.0-7.0); Lymphocytes # (auto) 0.7 10 ^3/uL (0.4-5.4); Lymphocytes % (auto) 11.8 % (10.0-50.0); Mean Corpuscular Hemoglobin 30.5 pg (28.0-32.0); Mean Corpuscular Hgb Conc. 33.5 g/dL (32.0-36.0); Mean Corpuscular Volume 91.2 fL (80.0-100.0); Monocytes # (auto) 0.5 10 ^3/uL (0-1.3); Monocytes % (auto) 8.7 % (0.0-12.0); Neutrophils # (auto) 4.3 10 ^3/uL (1.6-8.6); Neutrophils % (auto) 73.1 % (37.0-80.0); Platelet Count (auto) 195 10^3/uL (140-450); Red Blood Cells 3.29 10^6/uL (4.5-5.90); Red Cell Distribution Width 17.1 % (11.8-14.3); White Blood Cell 5.8 10^3/uL (4.4-10.8)
[2020-04-18 06:27] LABS: BUN/Creatinine Ratio 11.5; Calcium 7.9 mg/dL (8.5-10.1); Potassium 3.6 mmol/L (3.5-5.1)
[2020-04-18] MEDS: PANTOPRAZOLE 40 MG/10 ML VIAL INJ IV SCH ×2 (09:00→20:29)
[2020-04-18] MEDS: LISINOPRIL 20 MG TAB PO SCH (09:01)
[2020-04-18] MEDS: ERTAPENEM SOD INJ 1 GM in SODIUM CHL 0.9% 50 ML IV SCH (11:00)
[2020-04-18] MEDS ORDERED: HYDROmorphone HCL 2 MG TAB PO PRN (12:45)
[2020-04-18] MEDS: HYDROmorphone HCL 2 MG TAB PO PRN (16:39)
[2020-04-18] MEDS: SENNA 8.6 MG TAB PO PRN (16:40)
[2020-04-18] MEDS ORDERED: LACTULOSE 20Gm/30ML SOLN PO PRN (18:30)
[2020-04-18 20:24] LABS: Urine Bacteria NONE SEEN /hpf (None Seen); Urine Blood Negative /uL (Negative); Urine WBC 1 /hpf (0 - 3)
[2020-04-19] VITALS (7 sets, daily range): BP systolic 134–159; BP diastolic 71–80
[2020-04-19] MEDS: ACCU-CHEK COMFORT CURVE STRIP VI SCH ×7 (01:04→21:49)
[2020-04-19] MEDS: HYDROmorphone HCL 2 MG TAB PO PRN ×6 (01:04→21:49)
[2020-04-19] MEDS: InsuLIN REG 1unit/0.01ml Soln (100units/ml) SC SCH ×6 (04:00→20:25)
[2020-04-19] MEDS: HYDROmorphone HCL 2 MG/ML VL IV PRN (04:40)
[2020-04-19 06:27] LABS: Basophils # (auto) 0.1 10 ^3/uL (0-0.2); Basophils % (auto) 1.4 % (0.0-2.0); Eosinophils # (auto) 0.2 10 ^3/uL (0-0.8); Eosinophils % (auto) 3.6 % (0.0-7.0); Hematocrit 30.5 % (41.0-53.0); Hemoglobin 10.1 g/dL (13.5-17.5); Lymphocytes # (auto) 0.6 10 ^3/uL (0.4-5.4); Lymphocytes % (auto) 9.3 % (10.0-50.0); Mean Corpuscular Hemoglobin 30.1 pg (28.0-32.0); Mean Corpuscular Hgb Conc. 33.1 g/dL (32.0-36.0); Mean Corpuscular Volume 90.8 fL (80.0-100.0); Monocytes # (auto) 0.4 10 ^3/uL (0-1.3); Monocytes % (auto) 7.3 % (0.0-12.0); Neutrophils # (auto) 4.7 10 ^3/uL (1.6-8.6); Neutrophils % (auto) 78.4 % (37.0-80.0); Platelet Count (auto) 186 10^3/uL (140-450); Red Blood Cells 3.36 10^6/uL (4.5-5.90); Red Cell Distribution Width 16.6 % (11.8-14.3)
[2020-04-19 06:37] LABS: Calcium 7.8 mg/dL (8.5-10.1); Potassium 4.2 mmol/L (3.5-5.1)
[2020-04-19 06:47] LABS: BUN/Creatinine Ratio 11.3
[2020-04-19] MEDS: ERTAPENEM SOD INJ 1 GM in SODIUM CHL 0.9% 50 ML IV SCH (10:08)
[2020-04-19] MEDS: SENNA 8.6 MG TAB PO PRN (10:09)
[2020-04-19] MEDS: LISINOPRIL 20 MG TAB PO SCH (10:09)
[2020-04-19] MEDS: PANTOPRAZOLE 40 MG/10 ML VIAL INJ IV SCH ×2 (10:09→21:49)
[2020-04-19] MEDS ORDERED: SENNA 8.6 MG TAB PO SCH (22:00)
[2020-04-20] MEDS: HYDROmorphone HCL 2 MG TAB PO PRN ×4 (01:03→15:54)
[2020-04-20] MEDS: InsuLIN REG 1unit/0.01ml Soln (100units/ml) SC SCH ×5 (01:09→15:54)
[2020-04-20] MEDS: ACCU-CHEK COMFORT CURVE STRIP VI SCH ×4 (04:03→15:54)
[2020-04-20 05:00] VITALS: BP 133/76
[2020-04-20 08:53] VITALS: BP 146/71
[2020-04-20] MEDS: PANTOPRAZOLE 40 MG/10 ML VIAL INJ IV SCH (09:37)
[2020-04-20] MEDS: LISINOPRIL 20 MG TAB PO SCH (09:38)
[2020-04-20] MEDS: ERTAPENEM SOD INJ 1 GM in SODIUM CHL 0.9% 50 ML IV SCH (09:38)
[2020-04-20] MEDS: SENNA 8.6 MG TAB PO PRN (09:39)
[2020-04-20 12:30] VITALS: BP 125/92
[2020-04-20 15:09] VITALS: BP 125/92
== END 2020-04-20 17:00 | disposition home health service (06) | DRG 947 ==
LOC: EDBD 18:37 → ER 18:37 → EDUNIT# 18:37 → TELE 18:38 → TELE-WESTW 04-17 05:27
PROVIDERS: ADMIT Hospitalist; ATTEND Internal Medicine
PROC: 0W9G3ZZ Drainage of Peritoneal Cavity, Percutaneous Approach (ICD-10-PCS; principal; 2020-04-19)
DX: G89.3 Neoplasm related pain (acute) (chronic) (principal); K83.1 Obstruction of bile duct; C25.9 Malignant neoplasm of pancreas, unspecified; K92.2 Gastrointestinal hemorrhage, unspecified; R18.8 Other ascites; K52.9 Noninfective gastroenteritis and colitis, unspecified; I10 Essential (primary) hypertension; Z92.21 Personal history of antineoplastic chemotherapy; E11.9 Type 2 diabetes mellitus without complications; Z79.4 Long term (current) use of insulin; Z92.3 Personal history of irradiation; Z80.3 Family history of malignant neoplasm of breast; Z85.07 Personal history of malignant neoplasm of pancreas; Z80.42 Family history of malignant neoplasm of prostate; Z82.49 Family history of ischemic heart disease and other diseases of the circulatory system; Z85.46 Personal history of malignant neoplasm of prostate; Z87.891 Personal history of nicotine dependence; Z90.411 Acquired partial absence of pancreas; Z88.5 Allergy status to narcotic agent; Z90.49 Acquired absence of other specified parts of digestive tract
CPT/HCPCS: 10022; 36415; 70450; 71045; 74176; 74177; 76700; 76942; 80048; 80053; 81001; 82150; 82962; 83036; 83605; 83690; 83735; 83880; 83986; 84484; 85025; 85610; 85730; 86141; 86301; 86850; 86900; 86901; 87040; 87081; 87205; 89051; 96374; 96375; C9113; G0378; J0696; J1335; J1642; J1815; J2405; J2543; J3490

== ENCOUNTER 2020-05-01 19:45 | Emergency (ER) | payer MEDICARE, OTHER ==
[~2020-05-01] VITALS: Ht 188 cm; Wt 83.0 kg
[2020-05-02 00:23] LABS: Basophils # (auto) 0.1 10 ^3/uL (0-0.2); Basophils % (auto) 1.4 % (0.0-2.0); Eosinophils # (auto) 0.1 10 ^3/uL (0-0.8); Eosinophils % (auto) 1.6 % (0.0-7.0); Hematocrit 36.1 % (41.0-53.0); Hemoglobin 11.9 g/dL (13.5-17.5); Lymphocytes # (auto) 0.6 10 ^3/uL (0.4-5.4); Lymphocytes % (auto) 12.1 % (10.0-50.0); Mean Corpuscular Hgb Conc. 32.9 g/dL (32.0-36.0); Mean Corpuscular Volume 91.2 fL (80.0-100.0); Monocytes # (auto) 0.5 10 ^3/uL (0-1.3); Neutrophils # (auto) 3.4 10 ^3/uL (1.6-8.6); Neutrophils % (auto) 74.9 % (37.0-80.0); Platelet Count (auto) 160 10^3/uL (140-450); Red Blood Cells 3.95 10^6/uL (4.5-5.90); Red Cell Distribution Width 17.1 % (11.8-14.3); White Blood Cell 4.6 10^3/uL (4.4-10.8)
[2020-05-02] MEDS ORDERED: ONDANSETRON HCL 4 MG/2 ML VIAL IV ONE (00:30)
[2020-05-02] MEDS ORDERED: HYDROmorphone HCL 2 MG/ML VL IV ONE (00:30)
[2020-05-02 00:41] LABS: BUN/Creatinine Ratio 10.5; Calcium 7.9 mg/dL (8.5-10.1); Magnesium 1.5 mg/dL (1.6-2.6); Potassium 4.9 mmol/L (3.5-5.1)
[2020-05-02 00:42] LABS: INR 1.18 (0.9-1.15); Partial Thromboplastin Time 24.6 sec (23.0-31.2)
[2020-05-02 00:50] LABS: Bilirubin, Total 1.1 mg/dL (0.2-1.0); Total Protein 6.6 g/dL (6.4-8.2)
[2020-05-02 01:20] VITALS: BP 154/76
== END 2020-05-02 02:48 | disposition home or self-care (01) ==
LOC: EEVIPCON 19:45 → ER 19:45 → EDBD 19:45 → ER 05-02 02:22
DX: C25.0 Malignant neoplasm of head of pancreas (principal); R10.9 Unspecified abdominal pain; E11.9 Type 2 diabetes mellitus without complications; I10 Essential (primary) hypertension; Z87.891 Personal history of nicotine dependence; Z90.49 Acquired absence of other specified parts of digestive tract; Z79.899 Other long term (current) drug therapy; Z79.82 Long term (current) use of aspirin
CPT/HCPCS: 36415; 71045; 74176; 80053; 82962; 83690; 83735; 83880; 84443; 84484; 85025; 85379; 85610; 85730; 96374; 96375; 99285; J1170; J2405

== ENCOUNTER → 2020-05-02 | Emergency (ER) | payer MEDICARE, OTHER ==
[~2020-05-02] VITALS: Ht 208.3 cm; Wt 81.6 kg
[~2020-05-02] MED LIST changes: +HYDROmorphone HCL 2 MG/ML VL IM ONE; +HYDROmorphone HCL 2 MG/ML VL IV ONE; +ONDANSETRON HCL 4 MG/2 ML VIAL IM ONE; +ONDANSETRON HCL 4 MG/2 ML VIAL IV ONE
[2020-05-02 21:05] VITALS: BP 153/76
== END | disposition home or self-care (01) ==
LOC: EDUNIT# 19:24 → ER 19:32 → EDBD 19:32
DX: T83.011A Breakdown (mechanical) of indwelling urethral catheter, initial encounter (principal); C25.9 Malignant neoplasm of pancreas, unspecified; E11.9 Type 2 diabetes mellitus without complications; I10 Essential (primary) hypertension; Z90.49 Acquired absence of other specified parts of digestive tract; Z79.899 Other long term (current) drug therapy; Z79.1 Long term (current) use of non-steroidal anti-inflammatories (NSAID); Z87.891 Personal history of nicotine dependence; Z79.82 Long term (current) use of aspirin; Z88.8 Allergy status to other drugs, medicaments and biological substances
CPT/HCPCS: 96372; 99284; J1170; J2405